=== PATIENT | female | born 1945 | race Caucasian/White ===

== ENCOUNTER → 2016-11-19 | Outpatient (CLI) | payer MEDICARE ==
--- NOTE | 2016-11-20 07:46 | WWPN ---
[facility] - PROGRESS NOTE DATE OF SERVICE: 11/19/2016 CHIEF COMPLAINT: Vaginal dryness, which has gotten worse over the past few months. HPI: This is a 71-year-old, G1, P1 with an LMP of 1975. She is status post vaginal hysterectomy for benign reasons. She has been experiencing discomfort from vaginal dryness including discomfort around the urethral opening. She denies any other urinary symptoms. She previously had used estrogen vaginal cream about 2 years ago, which did seem to help with the vaginal dryness. She has not been on this for more than a year. She currently is not sexually active because of her 's health issues. She does notice the dryness, even though she is not sexually active. PAST MEDICAL HISTORY: The past medical history is unchanged from the 2016 H&P. MEDICATIONS: Medications are also unchanged from the 2016 H&P. REVIEW OF SYSTEMS: Weight has been stable. She denies respiratory, cardiac or GI problems. She denies maltreatment or falling. : She denies any significant urinary leakage. She has had some dryness and irritation as above. PHYSICAL EXAM: Blood pressure 173/82, height 5 feet 4 inches, weight 122 pounds, temperature 97.1, pulse 69. This is a well-developed, well-nourished, white female, who is alert and oriented x3, in no acute distress. ABDOMEN: Soft, nontender without palpable masses. PELVIC EXAM: External genitalia reveals moderate atrophy without lesions. Vagina reveals moderate to severe atrophy without lesions. The vagina is slightly shortened. There is no unusual discharge. Bimanual exam is negative for mass or tenderness. EXTREMITIES: Nontender. IMPRESSION: 1. A 71-year-old menopausal female, status post vaginal hysterectomy for benign reasons with vaginal dryness and periurethral irritation probably secondary to atrophic vaginitis. 2. No evidence of infectious vaginitis. 3. Elevated blood pressure with history of chronic hypertension. PLAN: 1. Trial of Premarin vaginal cream 1 gram intravaginally and to the introitus twice weekly. 2. The patient will follow up with Dr. Pulido regarding her blood pressure and for management of her blood pressure. 3. The patient states she will consider flu shots, but she has not done them in the past. 4. She will return for her annual examination when due. Total time spent with the patient 25 minutes. MMODL / IJN: [id number] /
== END | disposition home or self-care (01) ==
LOC: WWCWWP 10:40
PROVIDERS: ATTEND Obstetrics & Gynecology
DX: Z01.411 Encounter for gynecological examination (general) (routine) with abnormal findings (principal); Z90.710 Acquired absence of both cervix and uterus; L29.3 Anogenital pruritus, unspecified

== ENCOUNTER 2016-11-23 15:06 | Emergency (ER) | payer MEDICARE ==
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
[2016-11-23 16:21] VITALS: BP 160/59; PULSE 78; RESP 20; TEMP 98
== END 2016-11-23 16:36 ==
LOC: EC 15:06
DX: S49.91XA Unspecified injury of right shoulder and upper arm, initial encounter (principal); I10 Essential (primary) hypertension; Z79.899 Other long term (current) drug therapy; Z88.5 Allergy status to narcotic agent; V18.4XXA Pedal cycle driver injured in noncollision transport accident in traffic accident, initial encounter; Y93.89 Activity, other specified; Y92.410 Unspecified street and highway as the place of occurrence of the external cause
CPT/HCPCS: 99283

== ENCOUNTER → 2017-06-04 | Outpatient (CLI) | payer MEDICARE ==
[2017-06-04 11:21] VITALS: BP 182/81; PULSE 66; TEMP 98.2; BMI 20.9
--- NOTE | 2017-06-04 11:48 | P.PN ---
Progress Note - Text Progress Note Date: 06/04/17 Chief complaint: ingrown hair on the right labia times 3 days. HPI: this is a 72-year-old with an LMP of 1975. Patient developed a pimple like lesion on the right labia 3 days ago. She states that looked like a white head. Yesterday it started draining and has gotten smaller. She is not having any significant pain. She has been using the Premarin vaginal cream as directed and this has helped with her vaginal dryness symptoms. ROS: unremarkable PE: blood pressure 182/81 repeat blood pressure 138/88. Height 5'4," weight 122 pounds, temperature 98.2, pulse 66 ,BMI 20.9. This is a well-developed well-nourished white female who is alert and oriented times 3 in no acute distress. External genitalia: there is a pimple like lesion measuring approximately 9 mm x 9 mm on the right labia majora. It is a darker red color than the surrounding skin and is draining slightly from the center. This is slightly raised and firm and nontender. This has a benign appearance. There are no other vulvar lesions. The vulva does reveal moderate atrophy. Mammogram from 09/09/2016 done at [facility] was negative. IMPRESSION: 72-year-old menopausal female with right labial folliculitis for 3 days and is now draining. PLAN: I have reassured the patient that this appears benign and should resolve. She will use warm compresses b.i.d. and apply Neosporin b.i.d. until healed. She was also instructed to call for reevaluation if this is not resolving. She will return in approximately 3 months when she is due for her mammogram. She will be seen for her annual exam and mammogram at that time. Total time spent with the patient 15 minutes.
== END ==
LOC: WWCWWP 10:45
PROVIDERS: ATTEND Obstetrics & Gynecology
DX: Z53.9 Procedure and treatment not carried out, unspecified reason (principal)

== ENCOUNTER → 2017-09-17 | Outpatient (CLI) | payer MEDICARE ==
[2017-09-17 10:19] VITALS: BP 171/68; PULSE 69; TEMP 97.8; BMI 21.2
--- NOTE | 2017-09-17 11:15 | P.HPOB ---
History of Present Illness H&P Date: 09/17/17 Chief Complaint: The patient is here for her routine gynecologic exam and mammogram. This is a 72-year-old with an LMP of 1975. The patient is status post vaginal hysterectomy for benign reasons. She is without gynecologic complaints. She has not been sexually active because of her 's health issues. She was diagnosed with osteoporosis in 2016 with bone density testing. At that time she chose not to use medications for osteoporosis. Review of Systems Her weight has been stable over the last year. She denies respiratory, cardiac and G.I. problems. Certain foods can cause stomach upset such as spicy foods. She denies maltreatment or problems with falling. : she denies any significant problems with urinary leakage. Past Medical History Past Medical History: Hypertension Additional Past Medical History / Comment(s): Osteoporosis. 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 History of Any Multi-Drug Resistant Organisms: None Reported Past Surgical History: Hysterectomy (Vaginal hysterectomy 1975) Additional Past Surgical History / Comment(s): Colonoscopy 2013 Past Psychological History: No Psychological Hx Reported Smoking Status: Never smoker Past Alcohol Use History: Rare (2-4 per year) Past Drug Use History: None Reported Additional History: She's been since 1972 and is currently not sexually active. 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 - Past Family History Mother Family Medical History: Dementia, Hypertension Medications and Allergies Home Medications Medication Instructions Recorded Confirmed Type Famotidine [Pepcid] 20 mg PO DAILY PRN 10/24/14 09/17/17 History Nadolol [Corgard] 20 mg PO BID 10/24/14 09/17/17 History Meclizine [Antivert] 12.5 mg PO BID 06/04/17 09/17/17 History Spironolact/Hydrochlorothiazid 1 each PO DAILY 06/04/17 09/17/17 History [Aldactazide 25-25 MG] Multivitamin [Multivitamins Adult tab PO DAILY 09/17/17 History Gummies] Allergies Allergy/AdvReac Type Severity Reaction Status Date / Time hydromorphone [From Dilaudid] Allergy Nausea & Verified 06/04/17 11:22 Vomiting Exam Vital Signs Temp Pulse BP 09/17/17 10:11 97.8 F 69 171/68 Intake and Output 07/09/17/17 09/17/17 22:59 06:59 14:59 Other: Weight 56.245 kg Height 5'4", BMI 21.3. This is a well-developed well-nourished white female who is alert and oriented times 3 in no acute distress. HEENT: Within normal limits. NECK: Supple without mass or thyromegaly. CHEST AND LUNGS: Clear to auscultation. HEART: Regular rate and rhythm. BREASTS: Are without mass or discharge. AXILLARY EXAM: Negative for adenopathy. BACK: Negative for CVA tenderness. ABDOMEN: Soft, nontender, without palpable masses. PELVIC EXAM: External genitalia appears normal with moderate atrophy. Vagina appears normal with moderate atrophy. There is no evidence of prolapse. Bimanual examination is negative for mass or tenderness. RECTAL EXAM: Rectovaginal exam is negative for mass or tenderness and is negative for occult blood. EXTREMITIES: Nontender. IMPRESSION: 1. 72-year-old menopausal female status post vaginal hysterectomy for benign reasons with normal gynecologic exam. 2. History of osteoporosis. PLAN: 1. Pap smears have been discontinued 2. Self breast awareness was discussed. 3. Screening mammogram will be done today. 4. Osteoporosis management was discussed. I have stressed the importance of adequate calcium, vitamin D and regular exercise. The recommended amounts were also discussed. I have stressed the importance of medications for osteoporosis. We also discussed the possible side effects and concerns with medications such as Fosamax. We have decided to repeat the bone density testing since it has been 2 years since her last one. She states she will consider using medications for osteoporosis after this is done. The order slip for bone density testing was given to the patient. 5. She has not gotten flu shots in the fall, but she states she will consider it this fall. 6. She will return in one year.
--- NOTE | 2017-09-19 07:18 | MM ---
Reason for exam: screening (asymptomatic). Last mammogram was performed 1 year ago. History: Patient is postmenopausal. Physical Findings: A clinical breast exam by your physician is recommended on an annual basis and results should be correlated with mammographic findings. MG Screening Mammo w CAD Bilateral CC and MLO view(s) were taken. Prior study comparison: September 09, 2016, mammogram, performed at [facility]. September 08, 2015, mammogram, performed at [facility]. There are scattered fibroglandular densities. No significant changes when compared with prior studies. ASSESSMENT: Negative, BI-RAD 1 RECOMMENDATION: Routine screening mammogram of both breasts in 1 year.
== END | disposition home or self-care (01) ==
LOC: WWCWWP 10:01
PROVIDERS: ATTEND Obstetrics & Gynecology
DX: Z12.31 Encounter for screening mammogram for malignant neoplasm of breast (principal)
CPT/HCPCS: 77067

== ENCOUNTER → 2017-09-24 | Outpatient (CLI) | payer MEDICARE ==
--- NOTE | 2017-09-24 17:34 | BD ---
EXAMINATION TYPE: Axial Bone Density DATE OF EXAM: 09/24/2017 COMPARISON: NONE CLINICAL HISTORY: 72-year-old female post menopausal, osteoporosis Height: 5'4 Weight: 122 FRAX RISK QUESTIONS: Secondary Osteoporosis: RISK FACTORS HISTORY OF: Postmenopausal woman: y MEDICATIONS: Additional Medications: blood pressure Additional History: EXAM MEASUREMENTS: Bone mineral densitometry was performed using the Local[employer] System. Bone mineral density as measured about the Lumbar spine is: ----- L1-L4(G/cm2): 0.917 T Score Values are as follows: ----- L2: -2.4 ----- L3: -1.7 ----- L4: -2.5 ----- L1-L4: -2.2 Bone mineral density about the R hip (g/cm2): 0.711 Bone mineral density about the L hip (g/cm2): 0.725 T Score values are as follows: -----R Neck: -2.4 -----L Neck: -2.3 -----R Total: -1.7 -----L Total: -1.7 IMPRESSION: Osteopenia (T Score between -2.5 and -1). There is slightly increased risk of fracture and the patient may be considered for treatment. Re-Screen 2-5 years. NOTE: T-SCORE=SD OF THE YOUNG ADULT MEAN.
== END | disposition home or self-care (01) ==
LOC: RADBDWWP 12:33
PROVIDERS: ATTEND Obstetrics & Gynecology
DX: M85.80 Other specified disorders of bone density and structure, unspecified site (principal); Z78.0 Asymptomatic menopausal state
CPT/HCPCS: 77080

== ENCOUNTER → 2018-04-21 | Outpatient (CLI) | payer MEDICARE ==
--- NOTE | 2018-04-22 18:09 | ECHOF ---
Referral Reason:I47.1 Supraventricular tachycardia MEASUREMENTS -------- HEIGHT: 165.1 cm WEIGHT: 55.8 kg BP: 115/75 RVIDd: 2.5 cm (< 3.3) IVSd: 1.0 cm (0.6 - 1.1) LVIDd: 3.8 cm (3.9 - 5.3) LVPWd: 0.9 cm (0.6 - 1.1) IVSs: 1.2 cm LVIDs: 2.7 cm LVPWs: 1.3 cm LA Diam: 2.5 cm (2.7 - 3.8) LAESV Index (A-L): 23.49 ml/m Ao Diam: 2.4 cm (2.0 - 3.7) AV Cusp: 1.6 cm (1.5 - 2.6) MV EXCURSION: 16.464 mm (> 18.000) MV EF SLOPE: 79 mm/s (70 - 150) EPSS: 0.4 cm MV E Nabeel: 1.05 m/s MV DecT: 188 ms MV A Nabeel: 0.88 m/s MV E/A Ratio: 1.20 AR PHT: 695 ms RAP: 5.00 mmHg RVSP: 25.90 mmHg FINDINGS -------- Sinus rhythm. This was a technically good study. The left ventricular size is normal. Left ventricular wall thickness is normal. Overall left vent ricular systolic function is normal with, an EF between 60 - 65 %. The right ventricle is normal in size. Normal LA size by volume 22+/-6 ml/m2. The right atrium is normal in size. The aortic valve is trileaflet and appears structurally normal. There is mild aortic regurgitation. There is trace mitral regurgitation. Mild tricuspid regurgitation present. Right ventricular systolic pressure is normal at < 35 mmHg. Trace/mild (physiologic) pulmonic regurgitation. The aortic root size is normal. Normal inferior vena cava with normal inspiratory collapse consistent with estimated right atrial pre ssure of 5 mmHg. There is no pericardial effusion. CONCLUSIONS -------- 1. Sinus rhythm. 2. This was a technically good study. 3. The left ventricular size is normal. 4. Left ventricular wall thickness is normal. 5. Overall left ventricular systolic function is normal with, an EF between 60 - 65 %. 6. The right ventricle is normal in size. 7. Normal LA size by volume 22+/-6 ml/m2. 8. The right atrium is normal in size. 9. The aortic valve is trileaflet and appears structurally normal. 10. There is mild aortic regurgitation. 11. There is trace mitral regurgitation. 12. Mild tricuspid regurgitation present. 13. Right ventricular systolic pressure is normal at < 35 mmHg. 14. Trace/mild (physiologic) pulmonic regurgitation. 15. The aortic root size is normal. 16. Normal inferior vena cava with normal inspiratory collapse consistent with estimated right atrial pressure of 5 mmHg. 17. There is no pericardial effusion. CONTINUOUS PICKLING LINE PICKLER HELPER: Annabel Felix RDCS
== END ==
LOC: RADECHMAIN 15:37
PROVIDERS: ATTEND Internal Medicine
DX: I08.2 Rheumatic disorders of both aortic and tricuspid valves (principal); I47.1 Supraventricular tachycardia
CPT/HCPCS: 93306

== ENCOUNTER → 2018-09-09 | Outpatient (CLI) | payer MEDICARE ==
--- NOTE | 2018-09-09 08:55 | P.PN ---
Progress Note - Text Progress Note Date: 09/09/18 Chief Complaint: vaginal dryness which has been going on for a long time. HPI: this is a 73-year-old with an LMP of 1975. The patient is status post vaginal hysterectomy for benign reasons. She has been experiencing vaginal dryness which is very bothersome to her. She is no longer sexually active because of her 's medical conditions. She denies vaginal discharge or odor. She recently had a urine test this week which was negative for infection. She denies pruritus and feels the dryness is inside of the vagina. She previously had used an estrogen vaginal cream a few years ago, but only used for brief time. She is otherwise without complaints. ROS: she denies respiratory, cardiac, or G.I. problems. PE: Blood pressure: 171/72, Height: 5'5", Weight: 126 pounds, Temperature: 97.5, Pulse: 61. Pulse oximeter 99%. This is a well developed, well nourished, white female who is alert and orientedx3, in no acute distress. Pelvic exam: external genitalia reveals moderate atrophy without lesions. The vagina reveals moderate to severe atrophy without lesions. The vagina is mildly shortened and narrowed secondary to atrophy. There is no unusual discharge and no unusual odor. Bimanual examination is negative for mass or tenderness. Impression: 1. 73-year-old menopausal female with symptoms of vaginal dryness secondary to moderate to severe atrophy. 2. Status post vaginal hysterectomy for benign reasons. Plan: 1. Trial of Premarin vaginal cream. She will insert 1 g intravaginally twice weekly. She can also use a small amount of the cream to the introitus and around the urethral opening twice weekly. The electronic prescription will be sent to [facility] pharmacy in [place]. 2. She was instructed to call she has any questions or problems. She will return in one year for her well woman examination. Time spent with the patient: 20 minutes
== END | disposition home or self-care (01) ==
DX: Z53.9 Procedure and treatment not carried out, unspecified reason (principal)

== ENCOUNTER → 2018-09-15 | Outpatient (CLI) | payer MEDICARE ==
[2018-09-15 15:32] VITALS: BP 169/78; PULSE 68; RESP 18; BMI 20.7
--- NOTE | 2018-09-15 16:55 | P.HPOB ---
History of Present Illness H&P Date: 09/15/18 Chief Complaint: The patient is here for her routine gynecologic exam. This is a 73 year old with an LMP of 1975. The patient is status post vaginal hysterectomy for benign reasons. She was seen last week for vaginal dryness symptoms. She has not received her prescription which was done through a mail-order pharmacy. She is otherwise without complaints. Review of Systems Her weight has been stable. She denies respiratory, cardiac and G.I. problems. She denies maltreatment or problems with falling. : she denies any significant problems with urinary leakage. Past Medical History Past Medical History: Hypertension Additional Past Medical History / Comment(s): Osteoporosis. 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 History of Any Multi-Drug Resistant Organisms: None Reported Past Surgical History: Hysterectomy Additional Past Surgical History / Comment(s): Vaginal hysterectomy in 1975. Colonoscopy 2013 Past Psychological History: No Psychological Hx Reported Smoking Status: Never smoker Past Alcohol Use History: Occasional (0-4 per month) Past Drug Use History: None Reported Additional History: She has been since 1972 and is currently not se xually active. 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 - Past Family History Mother Family Medical History: Dementia, Hypertension Medications and Allergies Home Medications Medication Instructions Recorded Confirmed Type Famotidine [Pepcid] 20 mg PO DAILY PRN 10/24/14 09/15/18 History Nadolol [Corgard] 20 mg PO BID 10/24/14 09/15/18 History Spironolact/Hydrochlorothiazid 1 each PO DAILY 06/04/17 09/15/18 History [Aldactazide 25-25 MG] Multivitamin [Multivitamins Adult 1 tab PO DAILY 09/17/17 09/15/18 History Gummies] Estrogens, Conjugated Cream 1 gram VAGINAL DIRECTED #1 tube 09/09/18 Rx [Premarin Cream] Allergies Allergy/AdvReac Type Severity Reaction Status Date / Time hydromorphone [From Dilaudid] Allergy Nausea & Verified 09/15/18 15:33 Vomiting Exam Vital Signs Pulse Resp BP Pulse Ox 09/15/18 15:24 68 18 169/78 99 Intake and Output 09/15/18 09/15/18 09/15/18 06:59 14:59 22:59 Other: Weight 56.699 kg Height 5'5", weight 125 pounds, BMI 20.8. This is a well-developed well-nourished white female who is alert and oriented times 3 in no acute distress. HEENT: Within normal limits. NECK: Supple without mass or thyromegaly. CHEST AND LUNGS: Clear to auscultation. HEART: Regular rate and rhythm. BREASTS: Are without mass or discharge. AXILLARY EXAM: Negative for adenopathy. BACK: Negative for CVA tenderness. ABDOMEN: Soft, nontender, without palpable masses. PELVIC EXAM: External genitalia appears normal with moderate atrophy. Vagina appears normal with moderate atrophy. The vagina is mildly shortened and narrow secondary to atrophy. There is no evidence of prolapse. Bimanual examination is negative for mass or tenderness. RECTAL EXAM: Rectovaginal exam is negative for mass or tenderness and is negative for occult blood. EXTREMITIES: Nontender. IMPRESSION: 1. 73-year-old menopausal female who is status post vaginal hysterectomy for benign reasons. 2. Vaginal dryness secondary to genital atrophy. She has not tried to be prescribed estrogen cream since it has not yet arrived. 3. Her last bone density test showed osteopenia and this borders on osteoporosis. 4. Elevated blood pressure with history of chronic hypertension. PLAN: 1. Pap smears have been discontinued. 2. Self breast awareness was discussed with the patient. 3. Screening mammogram will be due in September. The orders that was given to the patient for this. 4. Osteoporosis prevention was discussed. I have stressed the importance of adequate calcium, vitamin D and regular exercise. Recommended amounts of julien cium and vitamin D were also discussed. We will plan and repeating bone density testing in 1 to 2 years. 5. I have recommended that she get flu shots in the fall. 6. I have recommended that she check her own blood pressure on a regular basis and follow-up with Dr. Pulido for blood pressure elevations. 7. She will use Premarin vaginal cream as directed when it arrives. 8. The patient was advised to return in 1-2 years for her well woman examination.
== END ==
LOC: WWCWWP 15:17
PROVIDERS: ATTEND Obstetrics & Gynecology
DX: Z53.9 Procedure and treatment not carried out, unspecified reason (principal)

== ENCOUNTER → 2018-10-15 | Outpatient (CLI) | payer MEDICARE ==
--- NOTE | 2018-10-20 09:24 | MM ---
Reason for exam: screening (asymptomatic). Last mammogram was performed 1 year and 1 month ago. History: Patient is postmenopausal. Physical Findings: A clinical breast exam by your physician is recommended on an annual basis and results should be correlated with mammographic findings. MG 3D Screening Mammo W/Cad Bilateral CC and MLO view(s) were taken. Prior study comparison: September 17, 2017, bilateral MG screening mammo w CAD. September 09, 2016, mammogram, performed at [facility]. There are scattered fibroglandular densities. Nodular asymmetric density lateral and posterior right breast is more defined. ASSESSMENT: Incomplete: need additional imaging evaluation, BI-RAD 0 RECOMMENDATION: Special view mammogram of the right breast. (3D) If lesion persists on supplemental views, image directed ultrasound is recommended. [facility] will attempt to contact patient to return for supplemental views and ultrasound if indicated.
== END | disposition home or self-care (01) ==
LOC: RADMAMWWP 13:28
PROVIDERS: ATTEND Obstetrics & Gynecology
DX: Z12.31 Encounter for screening mammogram for malignant neoplasm of breast (principal)
CPT/HCPCS: 77063; 77067

== ENCOUNTER → 2018-10-26 | Outpatient (CLI) | payer MEDICARE ==
--- NOTE | 2018-10-26 09:22 | MM ---
Reason for exam: additional evaluation requested from abnormal screening. Last mammogram was performed less than 1 month ago. History: Patient is postmenopausal. Physical Findings: Nurse did not find any significant physical abnormalities on exam. MG 3D Work Up W/Cad RT Spot compression CC, spot compression MLO, and LM view(s) were taken of the right breast. Prior study comparison: October 15, 2018, bilateral MG 3d screening mammo w/cad. September 17, 2017, bilateral MG screening mammo w CAD. There are scattered fibroglandular densities. No distinct lesion persists on additional views. These results were verbally communicated with the patient and result sheet given to the patient on 10/26/18. ASSESSMENT: Benign, BI-RAD 2 RECOMMENDATION: Return to routine screening mammogram schedule for both breasts.
== END | disposition home or self-care (01) ==
LOC: RADMAMWWP 08:15
PROVIDERS: ATTEND Obstetrics & Gynecology
DX: R92.8 Other abnormal and inconclusive findings on diagnostic imaging of breast (principal)
CPT/HCPCS: 77065; G0279; 77061

== ENCOUNTER 2019-03-24 10:17 | Day surgery (SDC) | payer MEDICARE ==
[2019-03-22 11:45] VITALS: BMI 20.5
[~2019-03-24 10:17] MED LIST: LACTATED RINGERS 1,000 ML IV SCH; LIDOCAINE 1% 20 ML VIAL (10MG/ML) FOR IV START INTRADERMA PRN
[2019-03-24 10:53] VITALS: TEMP 98.3
[2019-03-24] MEDS ORDERED: PROPOFOL 10 MG/ML 20 ML VIAL IV ONE (11:13)
[2019-03-24] MEDS ORDERED: LIDOCAINE 1% INJ 10MG/ML (20 ML MDV) ONE (11:13)
--- NOTE | 2019-03-24 11:45 | P.PCN ---
Date of Procedure: 03/24/19 Procedure(s) Performed: BRIEF HISTORY: Patient is a 73-year-old pleasant female scheduled for an elective colonoscopy as a part of evaluation of positive cologuard PROCEDURE PERFORMED: Colonoscopy. PREOPERATIVE DIAGNOSIS: Positive cologuard . IV sedation per Anesthesia. PROCEDURE: After informed consent was obtained, the patient, was brought into the endoscopy unit. IV sedation was administered by Anesthesia under continuous monitoring. Digital rectal examination was normal. Initially the Olympus CF-160 flexible video colonoscope was then inserted in the rectum, gradually advanced into the cecum without any difficulty. Careful examination was performed as the scope was gradually being withdrawn. Ileocecal valve and the appendiceal orifice were visualized and appeared normal. Prep was excellent. Mucosa of the cecum, ascending colon, transverse colon, descending colon, sigmoid colon, and rectum appeared normal. Scattered sigmoid diverticulosis seen. Retroflexion was performed in the rectum and small internal hemorrhoids were seen. The patient tolerated the procedure well. IMPRESSION: Normal-appearing colon from rectum to cecum with no evidence of colitis or colorectal neoplasia Scattered sigmoid diverticulosis Small internal hemorrhoids. . RECOMMENDATIONS: Findings of this examination were discussed with the patient as well as her family. She was advised to have a high-fiber diet and fiber supplements a regular basis and avoid straining and constipation
[2019-03-24 12:04] VITALS: BP 140/56; PULSE 58; RESP 16
== END 2019-03-24 12:35 | disposition home or self-care (01) ==
LOC: ORWHC2ENDO 10:17
PROVIDERS: ATTEND Internal Medicine Gastroenterology
DX: K57.30 Diverticulosis of large intestine without perforation or abscess without bleeding (principal); K64.8 Other hemorrhoids; I10 Essential (primary) hypertension; K21.9 Gastro-esophageal reflux disease without esophagitis; Z88.5 Allergy status to narcotic agent; Z79.899 Other long term (current) drug therapy
CPT/HCPCS: 45378; J2001; J2704

== ENCOUNTER → 2019-10-19 | Outpatient (CLI) | payer MEDICARE ==
[2019-10-19 10:52] VITALS: BP 132/57; PULSE 66; RESP 18; TEMP 97.7
--- NOTE | 2019-10-19 11:34 | P.HPOB ---
History of Present Illness H&P Date: 10/19/19 Chief Complaint: The patient is here for her routine gynecologic exam and ma mmogram. This is a 74-year-old with an LMP of 1975. The patient is status post vaginal hysterectomy for benign reasons. She states she has done well with Premarin vaginal cream which she has used for vaginal dryness symptoms. She would like to continue using this. She is otherwise without complaints. Review of Systems Weight has been stable. She denies respiratory, cardiac and G.I. problems. She denies maltreatment or problems with falling. : she denies any significant problems with urinary leakage. Past Medical History Past Medical History: Hypertension, Osteoarthritis (OA) Additional Past Medical History / Comment(s): Osteoporosis. hx hemmoroids. 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 History of Any Multi-Drug Resistant Organisms: None Reported Past Surgical History: Hysterectomy Additional Past Surgical History / Comment(s): Colonoscopy 2019. Vaginal hysterectomy in 1975. Past Anesthesia/Blood Transfusion Reactions: No Reported Reaction Past Psychological History: No Psychological Hx Reported Smoking Status: Former smoker Past Alcohol Use History: Rare (6 per year) Additional Past Alcohol Use History / Comment(s): Quit smoking at age 28. Past Drug Use History: None Reported Additional History: She has been since 1972 and is not sexually active. 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 - Past Family History Mother Family Medical History: Dementia, Hypertension Medications and Allergies Home Medications Medication Instructions Recorded Confirmed Type Famotidine [Pepcid] 20 mg PO DAILY PRN 10/24/14 10/19/19 History Nadolol [Corgard] 20 mg PO HS 10/24/14 10/19/19 History Spironolact/Hydrochlorothiazid 0.5 tab PO Q48H 06/04/17 10/19/19 History [Aldactazide 25-25 MG] Multivitamin [Multivitamins Adult 1 tab PO DAILY 09/17/17 10/19/19 History Gummies] Calcium Carbonate [Calcium] 600 mg PO DAILY 03/22/19 10/19/19 History Cyanocobalamin (Vitamin B-12) 1,000 mcg PO DAILY 03/22/19 10/19/19 History [Vitamin B-12] Estrogens, Conjugated Cream 1 gram VAGINAL Q14D 03/22/19 10/19/19 History [Premarin Cream] L.acidoph,Paracasei, B.lactis 1 each PO DAILY 03/22/19 10/19/19 History [Probiotic] Allergies Allergy/AdvReac Type Severity Reaction Status Date / Time hydromorphone [From Dilaudid] AdvReac Nausea & Verified 10/19/19 10:52 Vomiting Exam Vital Signs Temp Pulse Resp BP Pulse Ox 10/19/19 10:36 97.7 F 66 18 132/57 100 Intake and Output 10/18/19 10/19/19 10/19/19 22:59 06:59 14:59 Other: Weight 57.153 kg Height 5 feet 5 inches, weight 126 pounds, BMI 21.0. This is a well-developed well-nourished white female who is alert and oriented times 3 in no acute distress. HEENT: Within normal limits. NECK: Supple without mass or thyromegaly. CHEST AND LUNGS: Clear to auscultation. HEART: Regular rate and rhythm. BREASTS: Are without mass or discharge. AXILLARY EXAM: Negative for adenopathy. BACK: Negative for CVA tenderness. ABDOMEN: Soft, nontender, without palpable masses. PELVIC EXAM: External genitalia appears normal with mild to moderate atrophy. Vagina appears normal with mild to moderate atrophy. There is no evidence of prolapse. Bimanual examination is negative for mass or tenderness. RECTAL EXAM: Rectovaginal exam is negative for mass or tenderness and is negative for occult blood. EXTREMITIES: Nontender. IMPRESSION: 1. 74-year-old menopausal female who is status post vaginal hysterectomy for benign reasons with normal gynecologic exam. 2. Her last bone density test showed osteopenia in this borders on osteoporosis. 3. History of vaginal dryness secondary to genital atrophy which has improved with Premarin vaginal cream. PLAN: 1. Pap smears have been discontinued. 2. Self breast awareness was discussed with the patient. 3. Screening mammogram will be done today. 4. Osteoporosis prevention was discussed. I have stressed the importance of adequate calcium, vitamin D and regular exercise. Recommended amounts of calcium and vitamin D were also discussed. Bone density testing will be done today. 5. She plans to get a flu shot this fall. 6. Continue Premarin vaginal cream 1 g into the vagina 2 times weekly. The electronic prescription will be sent to [facility] in [place]. 7. The patient was advised to return in 1-2 years for her well woman examination.
--- NOTE | 2019-10-19 13:10 | BD ---
EXAMINATION TYPE: Axial Bone Density DATE OF EXAM: 10/19/2019 COMPARISON: 09/24/2017 CLINICAL HISTORY: Postmenopausal female. Height: 63.5 IN Weight: 125 LBS RISK FACTORS HISTORY OF: Active: YES Postmenopausal woman: AGE 43 APPROX MEDICATIONS: Additional Medications: CALCIUM, BLOOD PRESSURE MEDS, EXAM MEASUREMENTS: Bone mineral densitometry was performed using the [employer] System. Bone mineral density as measured about the Lumbar spine is: ----- L1-L4(G/cm2): 0.880 T Score Values are as follows: ----- L2: -2.4 ----- L3: -2.1 ----- L4: -3.3 ----- L1-L4: -2.5 Bone mineral density has: Decreased -5.8% since study of: 10/04/2017 Bone mineral density about the R hip (g/cm2): 0.712 Bone mineral density about the L hip (g/cm2): 0.692 T Score values are as follows: -----R Neck: -2.3 -----L Neck: -2.5 -----R Total: -1.7 -----L Total: -1.8 Bone mineral density has: Decreased -0.3% since study of: 09/24/2017 IMPRESSION: Osteopenia (T Score between -2.5 and -1) remains present. Bone density is decreased or diminished fro m prior. There remains slightly increased risk of fracture and the patient may be considered for treatment. Re-Screen 2-5 years. NOTE: T-SCORE=SD OF THE YOUNG ADULT MEAN.
--- NOTE | 2019-10-20 10:18 | MM ---
Reason for exam: screening (asymptomatic). Last mammogram was performed 1 year ago. History: Patient is postmenopausal. Physical Findings: A clinical breast exam by your physician is recommended on an annual basis and results should be correlated with mammographic findings. MG 3D Screening Mammo W/Cad Bilateral CC and MLO view(s) were taken. XCCL view(s) were taken of the right breast. Prior study comparison: October 26, 2018, right breast MG 3d work up w/cad RT. October 15, 2018, bilateral MG 3d screening mammo w/cad. There are scattered fibroglandular densities. There is no discrete abnormality. No significant changes when compared with prior studies. ASSESSMENT: Negative, BI-RAD 1 RECOMMENDATION: Routine screening mammogram of both breasts in 1 year.
--- NOTE | 2019-10-26 14:58 | P.PN ---
Progress Note - Text Progress Note Date: 10/26/19 OUTPATIENT FOLLOW-UP NOTE TEST(S)/RESULTS: Test results from 10/19/2019 include benign mammogram and bone density test showing osteopenia bordering on osteoporosis METHOD OF NOTIFICATION: Patient was notified by phone. PATIENT COMMENTS: The patient is declining any medication for osteoporosis/o steopenia DIAGNOSIS: Osteopenia bordering on osteoporosis and benign mammogram. DISCUSSION: We have had a long discussion on how her bones are a greater risk for fracture. We have discussed the option of medications such as Fosamax. We have discussed pros and cons with this medication and she is choosing to continue without medication for this. I have recommended that she get adequate calcium, vitamin D and regular exercise. She was also instructed to call me if she changes her mind about using medication for osteoporosis. PLAN: The patient was advised to return in 1-2 years for her well woman examination.
== END | disposition home or self-care (01) ==
LOC: WWCWWP 10:34
PROVIDERS: ATTEND Obstetrics & Gynecology
DX: Z12.31 Encounter for screening mammogram for malignant neoplasm of breast (principal); M85.80 Other specified disorders of bone density and structure, unspecified site; Z78.0 Asymptomatic menopausal state
CPT/HCPCS: 77063; 77067; 77080

== ENCOUNTER → 2020-04-11 | Outpatient (CLI) | payer MEDICARE ==
[2020-04-11 10:54] VITALS: BP 115/73; PULSE 76; RESP 18; TEMP 97.7
--- NOTE | 2020-04-11 11:43 | P.PN ---
Progress Note - Text Progress Note Date: 04/11/20 Chief Complaint: Soreness around the urethral opening during the past month. HPI: This is a 74-year-old with an LMP of 1975 who is status post vaginal hysterectomy for benign reasons. The patient developed some UTI symptoms including dysuria and urinary frequency in mid January. She was treated with nitrofurantoin on 02/04/2020 by her PCP. She again and developed some similar symptoms later in February and was again treated with nitrofurantoin by her PCP on 03/15/2020. She has completed that prescription and her urinary symptoms seem better, but she was experiencing some soreness around the urethral opening. Over the past 5 days this seems to be less bothersome. ROS: She denies respiratory or cardiac problems. GI: Yesterday she noticed some mucousy secretion from the anus. Her stool may also have been slightly loose. She denies problems with constipation or watery diarrhea. Today she had a fairly normal bowel movement. : As above. PE: Blood pressure: 115/73, Height: 5 feet 5 inches, Weight: 125 pounds, Temperature: Any 7.7, Pulse: 76. Pulse oximeter 99%. This is a well developed, well nourished, white female who is alert and orientedx3, in no acute distress. Abdomen: Soft, nontender, without palpable masses. Pelvic exam: External genitalia reveals mild to moderate atrophy without lesions. At the urethral opening there is a slight small abrasion at the 8 o'clock position of the opening. This is not ulcerated and is nontender. The vagina appears normal with mild to moderate atrophy. There is no significant prolapse. Bimanual examination is negative for mass or tenderness. Impression: 1. 74-year-old menopausal female status post vaginal hysterectomy for benign reasons with some soreness around the urethral opening with findings consistent of a small healing abrasion at the urethral opening. 2. Small amount of mucousy discharge from the anus yesterday. Plan: 1. I have reassured the patient that her soreness will probably continue to improve with time. She is to avoid rubbing or scratching the area. 2. She states she has been using the Premarin vaginal cream once a week. I have recommended that she use this twice a week with a small amount to the area around the urethral opening. She will call if symptoms are not improving or if problems. 3. If she continues to have an abnormal secretion from the anus, she will follow up with her PCP and possibly be referred to her GI doctor, Dr. Bonilla. 4. She will return in approximate 7 months for her well woman examination or return as needed. Time spent with the patient: 20 minutes
== END | disposition home or self-care (01) ==
LOC: WWCWWP 10:34
PROVIDERS: ATTEND Obstetrics & Gynecology
DX: L98.9 Disorder of the skin and subcutaneous tissue, unspecified (principal); K62.9 Disease of anus and rectum, unspecified; Z90.710 Acquired absence of both cervix and uterus

== ENCOUNTER → 2020-11-21 | Outpatient (CLI) | payer MEDICARE ==
[2020-11-21 09:49] VITALS: BP 149/82; PULSE 57; RESP 18; TEMP 98
--- NOTE | 2020-11-21 10:34 | P.HPOB ---
History of Present Illness H&P Date: 11/21/20 Chief Complaint: The patient is here for her routine gynecologic exam and ma mmogram. This is a 75-year-old with an LMP of 1975. The patient is without gynecologic complaints. She is status post vaginal hysterectomy for benign reasons. She continues to use Premarin vaginal cream for vaginal dryness and she states this has been helpful. She would like to continue using this. Review of Systems Weight has been stable. She denies respiratory, cardiac and G.I. problems. She denies maltreatment or problems with falling. : she denies any significant problems with urinary leakage. Past Medical History Past Medical History: Hypertension, Osteoarthritis (OA) Additional Past Medical History / Comment(s): Osteoporosis(has declined medication). hx hemorhoids. 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 History of Any Multi-Drug Resistant Organisms: None Reported Past Surgical History: Hysterectomy Additional Past Surgical History / Comment(s): Colonoscopy 2017(next after 10yr). Vaginal hysterectomy in 1975. Past Anesthesia/Blood Transfusion Reactions: No Reported Reaction Past Psychological History: No Psychological Hx Reported Smoking Status: Former smoker Past Alcohol Use History: Rare (6 per year) Additional Past Alcohol Use History / Comment(s): Quit smoking at age 28. 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 - Past Family History Mother Family Medical History: Dementia, Hypertension Medications and Allergies Home Medications Medication Instructions Recorded Confirmed Type Famotidine [Pepcid] 20 mg PO DAILY PRN 10/24/14 11/21/20 History Nadolol [Corgard] 20 mg PO HS 10/24/14 11/21/20 History Spironolact/Hydrochlorothiazid 0.5 tab PO Q48H 06/04/17 11/21/20 History [Aldactazide 25-25 MG] Calcium Carbonate [Calcium] 600 mg PO DAILY 03/22/19 11/21/20 History L.acidoph,Paracasei, B.lactis 1 each PO DAILY 03/22/19 11/21/20 History [Probiotic] Estrogens, Conjugated Cream 1 gram VAGINAL DIRECTED #1 tube 10/19/19 11/21/20 Rx [Premarin Cream] ALPRAZolam [Xanax] 0.5 mg PO Q8HR PRN 04/11/20 11/21/20 History Omeprazole [PriLOSEC] 20 mg PO AC-BRKFST 04/11/20 11/21/20 History Allergies Allergy/AdvReac Type Severity Reaction Status Date / Time hydromorphone [From Dilaudid] AdvReac Nausea & Verified 11/21/20 09:45 Vomiting Exam Vital Signs Temp Pulse Resp BP Pulse Ox 11/21/20 09:45 98.0 F 57 L 18 149/82 99 Intake and Output 11/20/20 11/21/20 11/21/20 22:59 06:59 14:59 Other: Weight 57.606 kg Height 5 feet 4-1/2 inches, weight 127 pounds, BMI 21.5. This is a well-developed well-nourished white female who is alert and oriented times 3 in no acute distress. HEENT: Within normal limits. NECK: Supple without mass or thyromegaly. CHEST AND LUNGS: Clear to auscultation. HEART: Regular rate and rhythm. BREASTS: Are without mass or discharge. AXILLARY EXAM: Negative for adenopathy. BACK: Negative for CVA tenderness. ABDOMEN: Soft, nontender, without palpable masses. PELVIC EXAM: External genitalia appears normal with mild to moderate atrophy. Vagina appears normal with mild to moderate atrophy. There is no evidence of prolapse. Bimanual examination is negative for mass or tenderness. RECTAL EXAM: Rectovaginal exam is negative for mass or tenderness and is negative for occult blood. EXTREMITIES: Nontender. IMPRESSION: 1. 75-year-old menopausal female status post vaginal hysterectomy for benign reasons with normal gynecologic exam. 2. History of osteoporosis and has declined treatment in the past. PLAN: 1. Pap smears have been discontinued. 2. Self breast awareness was discussed with the patient. We have also discussed symptoms associated with inflammatory breast cancer. 3. Screening mammogram will be done today. 4. Osteoporosis management was discussed. I have stressed the importance of adequate calcium, vitamin D and regular exercise. Recommended amounts of calcium and vitamin D were also discussed. We have discussed her increased risk for bone fracture. We have also discussed medication options. I have discussed Fosamax including possible risks such as osteonecrosis of the jaw and esophageal ulceration. She and her would like more information about medical treatment and about osteoporosis. Information on Fosamax and osteoporosis were given to the patient. She will call if she changes her mind regarding medication treatment for osteoporosis. 5. She would like to continue Premarin cream. The prescription will be sent to my her pharmacy in [place]. 6. She has completed her Covid vaccination series. She plans on getting her flu shot in the very near future. 7. She was advised to return in one year for her annual well woman exam.
--- NOTE | 2020-11-21 13:23 | MM ---
Reason for exam: screening (asymptomatic). Last mammogram was performed 1 year and 1 month ago. History: Patient is postmenopausal. Physical Findings: A clinical breast exam by your physician is recommended on an annual basis and results should be correlated with mammographic findings. MG 3D Screening Mammo W/Cad Bilateral CC and MLO view(s) were taken. Prior study comparison: October 19, 2019, bilateral MG 3d screening mammo w/cad. October 15, 2018, bilateral MG 3d screening mammo w/cad. There are scattered fibroglandular densities. There is no discrete abnormality. ASSESSMENT: Negative, BI-RAD 1 RECOMMENDATION: Routine screening mammogram of both breasts in 1 year.
== END ==
LOC: WWCWWP 09:23
PROVIDERS: ATTEND Obstetrics & Gynecology
DX: Z12.31 Encounter for screening mammogram for malignant neoplasm of breast (principal); Z01.419 Encounter for gynecological examination (general) (routine) without abnormal findings; I10 Essential (primary) hypertension; M19.90 Unspecified osteoarthritis, unspecified site; Z87.891 Personal history of nicotine dependence; Z90.710 Acquired absence of both cervix and uterus; Z87.39 Personal history of other diseases of the musculoskeletal system and connective tissue; Z88.5 Allergy status to narcotic agent
CPT/HCPCS: 77063; 77067

== ENCOUNTER → 2021-09-18 | Outpatient (CLI) | payer MEDICARE | END | disposition home or self-care (01) | LOC: LABWHC1 11:30 | PROVIDERS: ATTEND Internal Medicine | DX: U07.1 COVID-19 (principal) | CPT/HCPCS: U0003; C9803; U0005 ==

== ENCOUNTER 2021-09-29 10:47 | Emergency (ER) | payer MEDICARE ==
[2021-09-29 11:09] VITALS: TEMP 97.5
--- NOTE | 2021-09-29 11:14 | ED ---
Abdominal Pain HPI - General Chief Complaint: Abdominal Pain Stated Complaint: back pain, abd pain Time Seen by Provider: 09/29/21 11:14 Source: patient, RN notes reviewed Mode of arrival: ambulatory Limitations: no limitations - Related Data Home Medications Medication Instructions Recorded Confirmed Famotidine [Pepcid] 20 mg PO DAILY PRN 10/24/14 11/21/20 nadoloL [Corgard] 20 mg PO HS 10/24/14 11/21/20 Spironolact/Hydrochlorothiazid 0.5 tab PO Q48H 06/04/17 11/21/20 [Aldactazide 25-25 MG] Calcium Carbonate [Calcium] 600 mg PO DAILY 03/22/19 11/21/20 L.acidoph,Paracasei, B.lactis 1 each PO DAILY 03/22/19 11/21/20 [Probiotic] ALPRAZolam [Xanax] 0.5 mg PO Q8HR PRN 04/11/20 11/21/20 Omeprazole [PriLOSEC] 20 mg PO AC-BRKFST 04/11/20 11/21/20 Previous Rx's Medication Instructions Recorded Estrogens, Conjugated Cream 1 gram VAGINAL DIRECTED #30 gram 11/21/20 [Premarin Vaginal Cream] Allergies Allergy/AdvReac Type Severity Reaction Status Date / Time hydromorphone [From Dilaudid] AdvReac Nausea & Verified 09/29/21 11:09 Vomiting Review of Systems ROS Statement: Those systems with pertinent positive or pertinent negative responses have been documented in the HPI. ROS Other: All systems not noted in ROS Statement are negative. Past Medical History Past Medical History: Hypertension, Osteoarthritis (OA) Additional Past Medical History / Comment(s): Osteoporosis(has declined medication). hx hemorhoids. 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 History of Any Multi-Drug Resistant Organisms: None Reported Past Surgical History: Hysterectomy Additional Past Surgical History / Comment(s): Colonoscopy 2018(next after 10yr). Vaginal hysterectomy in 1975. Past Anesthesia/Blood Transfusion Reactions: No Reported Reaction Past Psychological History: No Psychological Hx Reported Smoking Status: Former smoker Past Alcohol Use History: Rare Past Drug Use History: None Reported - Past Family History Mother Family Medical History: Dementia, Hypertension General Exam Limitations: no limitations Course Vital Signs 09/29/21 11:06 Temperature 97.5 F L Pulse Rate 64 Respiratory 20 Rate Blood Pressure 175/66 O2 Sat by Pulse 100 Oximetry Disposition Referrals: Marlys Barton MD [Primary Care Provider] - 1-2 days
[2021-09-29] MEDS ORDERED: KETOROLAC 15 MG/ML 1 ML VIAL IVP STA (11:26)
--- NOTE | 2021-09-29 11:36 | ED ---
General Adult HPI - General Chief complaint: Abdominal Pain Stated complaint: back pain, abd pain Time Seen by Provider: 09/29/21 11:14 Source: patient, family, RN notes reviewed Mode of arrival: ambulatory Limitations: no limitations - History of Present Illness Initial comments: Patient is a 76-year-old female presents to the emergency room with her spouse with complaints of bilateral mid back pain which she states started as pain in her bilateral upper and epigastric abdominal region and has radiated to the back. She denies any nausea or vomiting; her spouse admits to increased belching earlier this morning. Patient is a poor historian repeating questions and statements often. Her spouse reports some issues with memory impairment but she is not currently on treatment for dementia or Parkinson's. She has a pill- rolling tremor in her left hand and facial tremors along with slowed speech. Her spouse reports that she has a history of pancreatitis many years ago but is unsure how symptoms presented at that time. She has not had any diarrhea since the events occurred. She states that the pain began today however her spouse reports intermittent symptoms over the last 4 days. Both the patient and his spouse report having COVID approximately one month ago. He recently tested at home and were negative. She denies any other significant symptoms with the exception of bilateral upper back pain without any known aggravating or alleviating factors. She denies any dysuria, hematuria, fevers, chills, back range of motion impairment, nausea, vomiting, diarrhea, abdominal cramping, changes in stools, or unintentional weight changes. Patient has a past medical history significant for hypertension, GERD and osteoporosis. - Related Data Home Medications Medication Instructions Recorded Confirmed Famotidine [Pepcid] 20 mg PO DAILY PRN 10/24/14 11/21/20 nadoloL [Corgard] 20 mg PO HS 10/24/14 11/21/20 Spironolact/Hydrochlorothiazid 0.5 tab PO Q48H 06/04/17 11/21/20 [Aldactazide 25-25 MG] Calcium Carbonate [Calcium] 600 mg PO DAILY 03/22/19 11/21/20 L.acidoph,Paracasei, B.lactis 1 each PO DAILY 03/22/19 11/21/20 [Probiotic] ALPRAZolam [Xanax] 0.5 mg PO Q8HR PRN 04/11/20 11/21/20 Omeprazole [PriLOSEC] 20 mg PO AC-BRKFST 04/11/20 11/21/20 Previous Rx's Medication Instructions Recorded Estrogens, Conjugated Cream 1 gram VAGINAL DIRECTED #30 gram 11/21/20 [Premarin Vaginal Cream] Erythromycin Base [Erythromycin] 250 mg PO Q6H 10 Days #40 tablet 09/29/21 Ondansetron Odt [Zofran Odt] 4 mg PO Q8HR PRN 7 Days #21 tab 09/29/21 Allergies Allergy/AdvReac Type Severity Reaction Status Date / Time hydromorphone [From Dilaudid] AdvReac Nausea & Verified 09/29/21 11:09 Vomiting Review of Systems ROS Statement: Those systems with pertinent positive or pertinent negative responses have been documented in the HPI. ROS Other: All systems not noted in ROS Statement are negative. Past Medical History Past Medical History: Hypertension, Osteoarthritis (OA) Additional Past Medical History / Comment(s): Osteoporosis(has declined medication). hx hemorhoids. 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 History of Any Multi-Drug Resistant Organisms: None Reported Past Surgical History: Hysterectomy Additional Past Surgical History / Comment(s): Colonoscopy 2018(next after 10yr). Vaginal hysterectomy in 1975. Past Anesthesia/Blood Transfusion Reactions: No Reported Reaction Past Psychological History: No Psychological Hx Reported Smoking Status: Former smoker Past Alcohol Use History: Rare Past Drug Use History: None Reported - Past Family History Mother Family Medical History: Dementia, Hypertension General Exam Limitations: no limitations General appearance: alert, in no apparent distress Head exam: Present: atraumatic, normocephalic, normal inspection Eye exam: Present: normal appearance, PERRL, EOMI. Absent: scleral icterus, conjunctival injection, periorbital swelling ENT exam: Present: normal exam, mucous membranes moist Neck exam: Present: normal inspection. Absent: tenderness, meningismus, lymphadenopathy Respiratory exam: Present: normal lung sounds bilaterally. Absent: respiratory distress, wheezes, rales, rhonchi, stridor Cardiovascular Exam: Present: regular rate, normal rhythm, normal heart sounds. Absent: systolic murmur, diastolic murmur, rubs, gallop, clicks GI/Abdominal exam: Present: soft, normal bowel sounds. Absent: distended, tenderness, guarding, rebound, rigid Extremities exam: Present: normal inspection, full ROM, normal capillary refill. Absent: tenderness, pedal edema, joint swelling, calf tenderness Back exam: Present: normal inspection, full ROM. Absent: CVA tenderness (R), CVA tenderness (L), muscle spasm, paraspinal tenderness, vertebral tenderness Neurological exam: Present: alert, oriented X3, CN II-XII intact Expanded Neurological exam: Present: tremor Patient oriented to: Present: person, place, time (Poor historian) Speech: Absent: fluid speech (slow and stuttered at times) Psychiatric exam: Present: normal affect, normal mood Skin exam: Present: warm, dry, intact, normal color. Absent: rash Course Vital Signs 09/29/21 11:06 Temperature 97.5 F L Pulse Rate 64 Respiratory 20 Rate Blood Pressure 175/66 O2 Sat by Pulse 100 Oximetry Medical Decision Making - Medical Decision Making Patient complaining of bilateral flank pain but initially reports upper abdominal pain. Will check KUB along with CBC, amylase, lipase and CMP. Will give Toradol for pain and monitor symptoms. Patient with dry heaves without any emesis. Will give Zofran. CBC normal. CMP amylase and lipase showed elevated glucose at 112 otherwise normal. KUB consistent with gastroenteritis versus ileus. No evidence of obstruction. Back pain improved with Toradol. Nausea improved with Zofran. Laboratory findings and x-ray results discussed with patient and spouse. Will discharge home on a short course of erythromycin along with Zofran to utilize as needed. Return parameters to the emergency room discussed with patient and spouse. Advise follow-up with their primary care provider next week. Case discussed with Dr. Jarrett - Lab Data Result diagrams: 09/29/21 11:47 09/29/21 11:47 Lab Results 09/29/21 09/29/21 Range/Units 11:47 11:47 WBC 8.1 (3.8-10.6) k/uL RBC 4.75 (3.80-5.40) m/uL Hgb 13.1 (11.4-16.0) gm/dL Hct 41.0 (34.0-46.0) % MCV 86.2 (80.0-100.0) fL MCH 27.6 (25.0-35.0) pg MCHC 32.0 (31.0-37.0) g/dL RDW 12.9 (11.5-15.5) % Plt Count 334 (150-450) k/uL MPV 7.7 Neutrophils % 72 % Lymphocytes % 19 % Monocytes % 5 % Eosinophils % 2 % Basophils % 1 % Neutrophils # 5.8 (1.3-7.7) k/uL Lymphocytes # 1.5 (1.0-4.8) k/uL Monocytes # 0.4 (0-1.0) k/uL Eosinophils # 0.2 (0-0.7) k/uL Basophils # 0.1 (0-0.2) k/uL Sodium 141 (137-145) mmol/L Potassium 4.0 (3.5-5.1) mmol/L Chloride 104 (98-107) mmol/L Carbon Dioxide 28 (22-30) mmol/L Anion Gap 9 mmol/L BUN 17 (7-17) mg/dL Creatinine 0.74 (0.52-1.04) mg/dL Est GFR (CKD-EPI)AfAm >90 (>60 ml/min/1.73 sqM) Est GFR (CKD-EPI)NonAf 78 (>60 ml/min/1.73 sqM) Glucose 114 H (74-99) mg/dL Calcium 9.0 (8.4-10.2) mg/dL Total Bilirubin 0.6 (0.2-1.3) mg/dL AST 27 (14-36) U/L ALT 13 (4-34) U/L Alkaline Phosphatase 61 (38-126) U/L Total Protein 7.0 (6.3-8.2) g/dL Albumin 4.3 (3.5-5.0) g/dL Amylase 74 (30-110) U/L Lipase 132 (23-300) U/L - Radiology Data Radiology results: report reviewed, image reviewed X-ray KUB impression small air-fluid levels in the left side of abdomen suggested of regional ileus or enteritis. Nonobstructive bowel gas pattern. Disposition Clinical Impression: Gastroenteritis Disposition: HOME SELF-CARE Condition: Stable Instructions (If sedation given, give patient instructions): Gastritis (ED) Additional Instructions: Please complete course of erythromycin. Follow a bland diet with plenty of fluid intake avoiding caffeinated products. Utilize Zofran as needed for nausea. Please follow-up with your primary care provider. Please return to the Emergency Department if symptoms worsen or any other concerns. Prescriptions: Erythromycin Base [Erythromycin] 250 mg PO Q6H 10 Days #40 tablet Ondansetron Odt [Zofran Odt] 4 mg PO Q8HR PRN 7 Days #21 tab PRN Reason: Nausea Is patient prescribed a controlled substance at d/c from ED?: No Referrals: Marlys Barton MD [Primary Care Provider] - 1-2 days Time of Disposition: 13:11
[2021-09-29] MEDS ORDERED: ONDANSETRON 4 MG/2 ML VIAL IVP STA (11:53)
[2021-09-29 11:55] LABS: Basophils # (A) 0.1 k/uL (0-0.2); Basophils % (A) 1 %; Eosinophils # (A) 0.2 k/uL (0-0.7); Eosinophils % (A) 2 %; HGB 13.1 gm/dL (11.4-16.0); Lymphocytes # (A) 1.5 k/uL (1.0-4.8); Lymphocytes % (A) 19 %; MCH 27.6 pg (25.0-35.0); MCV 86.2 fL (80.0-100.0); Mean Platelet Volume 7.7; Monocytes # (A) 0.4 k/uL (0-1.0); Monocytes % (A) 5 %; Neutrophils # (A) 5.8 k/uL (1.3-7.7); Neutrophils % (A) 72 %; Platelet Count 334 k/uL (150-450); RBC 4.75 m/uL (3.80-5.40); RDW 12.9 % (11.5-15.5); WBC 8.1 k/uL (3.8-10.6)
[2021-09-29 12:07] LABS: ALT 13 U/L (4-34); African American GFR (CKD) >90 (>60 ml/min/1.73 sqM); Albumin 4.3 g/dL (3.5-5.0); Amylase 74 U/L (30-110); Anion Gap 9 mmol/L; Blood Urea Nitrogen 17 mg/dL (7-17); Carbon Dioxide 28 mmol/L (22-30); Chloride 104 mmol/L (98-107); Glucose 114 mg/dL (74-99); Lipase 132 U/L (23-300); Non-African American GFR(CKD) 78 (>60 ml/min/1.73 sqM); Sodium 141 mmol/L (137-145); Total Bilirubin 0.6 mg/dL (0.2-1.3)
--- NOTE | 2021-09-29 12:11 | XR ---
EXAMINATION TYPE: XR KUB DATE OF EXAM: 09/29/2021 Comparison: None Clinical History: 76 year-old female abdominal pain and vomiting Findings: Lung bases are clear. No evidence for free intraperitoneal air. Small air-fluid levels within the left side of the abdomen. No dilated small bowel. No significant st ool burden. Mild stool within the distal sigmoid and rectum. No suspicious calcifications seen. Impression: Small air-fluid levels in the left side of the abdomen suggest a regional ileus or enteritis. Nonobst ructive bowel gas pattern.
[2021-09-29 12:14] LABS: AST 27 U/L (14-36); Alkaline Phosphatase 61 U/L (38-126)
[2021-09-29 13:23] VITALS: BP 131/74; PULSE 55; RESP 18
== END 2021-09-29 13:23 | disposition home or self-care (01) ==
LOC: EC 10:47
DX: K52.9 Noninfective gastroenteritis and colitis, unspecified (principal); I10 Essential (primary) hypertension; M19.90 Unspecified osteoarthritis, unspecified site; Z87.891 Personal history of nicotine dependence; Z88.5 Allergy status to narcotic agent; Z79.899 Other long term (current) drug therapy
CPT/HCPCS: 80053; 82150; 83690; 85025; 74018; 99284; 96374; 96375; J2405; J1885

== ENCOUNTER → 2021-10-03 | Outpatient (CLI) | payer MEDICARE ==
--- NOTE | 2021-10-03 15:52 | CT ---
EXAMINATION TYPE: CT abdomen pelvis w con CT DLP: 374.5 mGycm, Automated exposure control for dose reduction was used. DATE OF EXAM: 10/03/2021 3:31 PM COMPARISON: CT abdomen pelvis 02/06/2011. CLINICAL INDICATION:Female, 76 years old with history of R10.9 ABDOMINAL PAIN; Epigastric abdominal p ain radiating into back. TECHNIQUE: Standard CT of the abdomen and pelvis following the administration of 70 cc of Isovue 30 0 IV contrast material and oral contrast. Coronal and sagittal reformats were performed. FINDINGS: LOWER CHEST: Right lower lobe 8 mm pulmonary nodule (series 4, image 6). ABDOMEN LIVER: Unremarkable GALLBLADDER AND BILE DUCTS: Distended gallbladder with circumferential wall thickening and pericholec ystic fluid with surrounding fat stranding. Pneumobilia. No biliary ductal dilatation. There is assoc iated thickening of the right paracolic fascia. PANCREAS: Unremarkable. SPLEEN: Unremarkable. ADRENAL GLANDS: Unremarkable. KIDNEYS AND URETERS: No evidence of hydronephrosis or renal calculus. The kidneys enhance symmetrical ly. Subcentimeter hyperattenuating lesion within left kidney is too small to characterize. PELVIS BLADDER: Unremarkable REPRODUCTIVE: The uterus is surgically absent. ABDOMEN & PELVIS STOMACH AND BOWEL: Stomach and duodenum are unremarkable. Inflammatory changes and wall thickening in volving the hepatic flexure likely reactive to the gallbladder. The appendix is within normal limits. Colonic diverticulosis without evidence for acute diverticulitis. No evidence of bowel obstruction. PERITONEUM: No evidence of pneumoperitoneum. Small amount of free fluid in the pelvis. VASCULATURE: Moderate atherosclerotic calcifications are present throughout the abdominal aorta and i ts branches. No evidence of aortic aneurysm. MUSCULOSKELETAL: No acute osseous abnormalities. Osteoarthritic changes of the right hip. Degenerativ e changes of the lumbar spine most pronounced at L5-S1. LYMPH NODES: No gross evidence for lymphadenopathy. SOFT TISSUE/ABDOMINAL WALL: Small fat filled umbilical hernia. IMPRESSION: 1. Gallbladder wall thickening/fat stranding and pericholecystic fluid consistent with acute cholecys titis. 2. Pneumobilia. 3. Wall thickening and inflammatory changes involving the hepatic flexure, likely reactive to #1. 4. Colonic diverticulosis as well as for acute diverticulitis. 5. Small amount of free fluid in the pelvis likely reactive to #1. 6. Right lower lobe 8 mm pulmonary nodule. Follow-up CT chest in 6-12 months is recommended. Findings called to and discussed with Dr. Marlys Barton at 3:49 PM on 10/03/2021.
== END | disposition home or self-care (01) ==
LOC: RADCTMAIN 14:00
PROVIDERS: ATTEND Internal Medicine
DX: K57.33 Diverticulitis of large intestine without perforation or abscess with bleeding (principal); R91.1 Solitary pulmonary nodule
CPT/HCPCS: 74177; Q9967 ×2

== ENCOUNTER → 2022-01-01 | Outpatient (CLI) | payer MEDICARE ==
[2022-01-01 14:25] VITALS: BP 134/60; PULSE 61; RESP 17; TEMP 98.5
--- NOTE | 2022-01-01 15:18 | P.HPOB ---
History of Present Illness H&P Date: 01/01/22 Chief Complaint: The patient is here for her routine gynecologic exam and ma mmogram. This is a 76-year-old with an LMP of 1975. The patient is without gynecologic complaints. She continues to use Premarin vaginal cream for vaginal dryness and states this has been helpful. She is status post vaginal hysterectomy for benign reasons. Review of Systems The patient has lost 14 pounds over the last year. She denies respiratory, cardiac, or G.I. problems. Past Medical History Past Medical History: Hypertension, Osteoarthritis (OA) Additional Past Medical History / Comment(s): Osteoporosis(has not used to medication). hx hemorhoids. 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 History of Any Multi-Drug Resistant Organisms: None Reported Past Surgical History: Cholecystectomy, Hysterectomy Additional Past Surgical History / Comment(s): Colonoscopy 2017(next after 10yr). Vaginal hysterectomy in 1975. Past Anesthesia/Blood Transfusion Reactions: No Reported Reaction Past Psychological History: No Psychological Hx Reported Smoking Status: Former smoker Past Alcohol Use History: Rare Additional Past Alcohol Use History / Comment(s): Quit smoking at age 28. 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 - Past Family History Mother Family Medical History: Dementia, Hypertension Medications and Allergies Home Medications Medication Instructions Recorded Confirmed Type nadoloL [Corgard] 20 mg PO HS 10/24/14 01/01/22 History Spironolact/Hydrochlorothiazid 1 tab PO Q48H 06/04/17 01/01/22 History [Aldactazide 25-25 MG] L.acidoph,Paracasei, B.lactis 1 cap PO DAILY 03/22/19 01/01/22 History [Probiotic] Omeprazole [PriLOSEC] 20 mg PO AC-BRKFST 04/11/20 01/01/22 History Acetaminophen Tab [Tylenol] 650 mg PO Q6H #30 tab 10/06/21 01/01/22 Rx Ibuprofen [Motrin] 600 mg PO Q6HR PRN #40 tab 10/06/21 01/01/22 Rx Calcium Carbonate/Vitamin D3 1 cap PO DAILY 01/01/22 01/01/22 History [Calcium 500Mg-Vit D3 15 mcg (600 unit)] Estrogens, Conjugated Cream 1 applic VAGINAL WEEKLY 01/01/22 01/01/22 History [Premarin Vaginal Cream] Allergies Allergy/AdvReac Type Severity Reaction Status Date / Time hydromorphone [From Dilaudid] AdvReac Nausea & Verified 01/01/22 14:05 Vomiting Exam Vital Signs Temp Pulse Resp BP Pulse Ox 01/01/22 14:23 98.5 F 61 17 134/60 98 Intake and Output 01/01/22 01/01/22 01/01/22 06:59 14:59 22:59 Other: Weight 51.256 kg Height 5 feet 4 inches, weight 113 pounds, BMI 19.4. This is a well-developed well-nourished white female who is alert and oriented times 3 in no acute distress. HEENT: Within normal limits. NECK: Supple without mass or thyromegaly. CHEST AND LUNGS: Clear to auscultation. HEART: Regular rate and rhythm. BREASTS: Are without mass or discharge. AXILLARY EXAM: Negative for adenopathy. BACK: Negative for CVA tenderness. ABDOMEN: Soft, nontender, without palpable masses. PELVIC EXAM: External genitalia appears normal with mild to moderate atrophy. Vagina appears normal with mild to moderate atrophy. There is no evidence of prolapse. Bimanual examination is negative for mass or tenderness. RECTAL EXAM: Rectovaginal exam is negative for mass or tenderness and is negative for occult blood. EXTREMITIES: Nontender. IMPRESSION: 1. 76-year-old menopausal female status post vaginal hysterectomy with normal gynecologic exam. 2. History of osteoporosis. The patient has declined treatment in the past. She is not interested in starting Fosamax for osteoporosis. PLAN: 1. Pap smears have been discontinued. 2. Self breast awareness was discussed with the patient. We have also discussed symptoms associated with inflammatory breast cancer. 3. Screening mammogram will be done today. 4. Osteoporosis management was discussed. I have stressed the importance of adequate calcium, vitamin D and regular exercise. Recommended amounts of calcium and vitamin D were also discussed. We have had a long discussion regarding pros and cons of medications such as Fosamax. We have discussed potential risks including risk for esophageal ulceration as well as osteonecrosis of the jaw with jaw surgery or extensive dental surgery. She had a normal creatinine blood tests on 10/05/2021. On that date her serum calcium was low. The patient states this was around the time of her cholecystectomy and she had not been taking in calcium at that time because of GI problems. We will plan on repeating the serum calcium level and the order slip will be mailed to the patient. I will also send the patient and her information on Fosamax and osteoporosis. When she is ready to have a calcium level drawn, I will call her with the results. If this is normal and they want to proceed with Fosamax, we will do so at that time. 5. She will continue Premarin vaginal cream. She states she does not need a new prescription for this at this time. She will call if she does need a new prescription. 6. She was advised to return in one year for her annual well woman exam.
--- NOTE | 2022-01-02 08:41 | MM ---
Reason for Exam: Screening (asymptomatic). Last mammogram was performed 1 year(s) and 1 month(s) ago. Patient History: Menarche at age 11. First Full-Term at age 21. Hysterectomy at age 38. Postmenopausal. Risk Values: Marissa 5 year model risk: 1.5%. NCI Lifetime model risk: 2.8%. Prior Study Comparison: 10/26/2018 Right Diagnostic Mammogram, [facility]. 10/19/2019 Bilateral Screening Mammogram, [facility]. 11/21/2020 Bilateral Screening Mammogram, [facility]. Tissue Density: The breast tissue is almost entirely fat. Findings: Analyzed By CAD. There is no suspicious group of microcalcifications or new suspicious mass in either breast. Overall Assessment: Negative, BI-RAD 1 Management: Screening Mammogram of both breasts in 1 year. A clinical breast exam by your physician is recommended on an annual basis and results should be correlated with mammographic findings. [facility] will attempt to contact patient to return for supplemental views and ultrasound if indicated. Electronically signed and approved by: Derek Magallon DO
== END | disposition home or self-care (01) ==
LOC: WWCWWP 13:55
PROVIDERS: ATTEND Obstetrics & Gynecology
DX: Z12.31 Encounter for screening mammogram for malignant neoplasm of breast (principal)
CPT/HCPCS: 77063; 77067

== ENCOUNTER 2022-12-13 16:15 | Emergency (ER) | payer MEDICARE ==
[2022-12-13 16:25] VITALS: RESP 18; TEMP 97.8
[2022-12-13] MEDS ORDERED: SODIUM CHLORIDE 0.9% 500 ML 500 ML IV STA (16:52)
[2022-12-13] MEDS ORDERED: ADENOSINE 3 MG/ML 2 ML VIAL IVP STA (16:52)
[2022-12-13 17:52] LABS: Basophils # (A) 0.1 k/uL (0-0.2); Basophils % (A) 1 %; Eosinophils # (A) 0.3 k/uL (0-0.7); Eosinophils % (A) 3 %; HCT 29.9 % (34.0-46.0); HGB 9.6 gm/dL (11.4-16.0); Hypochromasia Moderate; Lymphocytes # (A) 1.9 k/uL (1.0-4.8); Lymphocytes % (A) 23 %; MCH 24.9 pg (25.0-35.0); MCHC 32.2 g/dL (31.0-37.0); MCV 77.4 fL (80.0-100.0); Mean Platelet Volume 7.8; Monocytes # (A) 0.5 k/uL (0-1.0); Monocytes % (A) 6 %; Neutrophils # (A) 5.3 k/uL (1.3-7.7); Neutrophils % (A) 65 %; Platelet Count 362 k/uL (150-450); RBC 3.86 m/uL (3.80-5.40); RDW 14.6 % (11.5-15.5); WBC 8.2 k/uL (3.8-10.6)
[2022-12-13 18:16] LABS: INR 0.9 (<1.2); Partial Thromboplastin Time 21.7 sec (22.0-30.0); Prothrombin Time 10.4 sec (10.0-12.5)
[2022-12-13 18:18] LABS: ALT 15 U/L (4-34); AST 28 U/L (14-36); African American GFR (CKD) 63 (>60 ml/min/1.73 sqM); Alkaline Phosphatase 78 U/L (38-126); Anion Gap 11 mmol/L; Blood Urea Nitrogen 24 mg/dL (7-17); Calcium 9.1 mg/dL (8.4-10.2); Carbon Dioxide 22 mmol/L (22-30); Chloride 105 mmol/L (98-107); Glucose 93 mg/dL (74-99); Magnesium 2.1 mg/dL (1.6-2.3); Non-African American GFR(CKD) 55 (>60 ml/min/1.73 sqM); Potassium 4.1 mmol/L (3.5-5.1); Sodium 138 mmol/L (137-145); Total Bilirubin 0.4 mg/dL (0.2-1.3); Total Protein 6.6 g/dL (6.3-8.2)
[2022-12-13 18:55] VITALS: BP 121/64; PULSE 78
--- NOTE | 2022-12-13 19:17 | ED ---
Chest Pain HPI - General Chief Complaint: Chest Pain Stated Complaint: chest pain and upper back pain Time Seen by Provider: 12/13/22 16:25 Source: patient Mode of arrival: wheelchair Limitations: no limitations - History of Present Illness Initial Comments: Patient is 77-year-old woman with history of previous SVT, who presents to have evaluation of chest pain and a feeling like her heart is pounding that is been going on nearly 3 hours. MD Complaint: chest pain Onset/Timin -: hour(s) Onset: during rest Pain Location: substernal Pain Radiation: none Severity: moderate Quality: heaviness Consistency: constant Improves With: nothing Worsens With: nothing Other Symptoms: palpitations Treatments Prior to Arrival: none - Related Data Home Medications Medication Instructions Recorded Confirmed nadoloL [Corgard] 20 mg PO HS 10/24/14 12/13/22 Spironolact/Hydrochlorothiazid 0.5 tab PO Q2D 06/04/17 12/13/22 [Aldactazide 25-25 MG] L.acidoph,Paracasei, B.lactis 1 cap PO DAILY 03/22/19 12/13/22 [Probiotic] Omeprazole [PriLOSEC] 20 mg PO AC-BRKFST 04/11/20 12/13/22 Calcium Carbonate/Vitamin D3 1 cap PO DAILY 01/01/22 12/13/22 [Calcium 500Mg-Vit D3 15 mcg (600 unit)] Estrogens, Conjugated Cream 1 applic VAGINAL AGUILLON 01/01/22 12/13/22 [Premarin Vaginal Cream] Amoxic-Pot Clav 875-125Mg 1 tab PO Q12HR 12/13/22 12/13/22 [Augmentin 875-125] Allergies Allergy/AdvReac Type Severity Reaction Status Date / Time hydromorphone [From Dilaudid] AdvReac Nausea & Verified 12/13/22 18:19 Vomiting Review of Systems ROS Statement: Those systems with pertinent positive or pertinent negative responses have been documented in the HPI. ROS Other: All systems not noted in ROS Statement are negative. Constitutional: Denies: fever, chills, weakness Respiratory: Reports: dyspnea. Denies: cough, wheezes Cardiovascular: Reports: chest pain, palpitations. Denies: orthopnea, edema, syncope Gastrointestinal: Denies: abdominal pain, nausea, vomiting, diarrhea Genitourinary: Denies: dysuria, hematuria Musculoskeletal: Denies: back pain Skin: Denies: rash Neurological: Denies: headache, weakness, numbness Psychiatric: Reports: anxiety EKG Findings - EKG Results: EKG: interpreted by SANGEETAD, normal axis, normal QRS EKG shows: tachycardia (Rate approximately 131) - Blocks, [place], Hypertrophy, ST Abn: Repolarization changes or abnormalities: ST suggestive of injury Past Medical History Past Medical History: Hypertension, Osteoarthritis (OA) Additional Past Medical History / Comment(s): Osteoporosis(has not used to medication). hx hemorhoids. 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 History of Any Multi-Drug Resistant Organisms: None Reported Past Surgical History: Cholecystectomy, Hysterectomy Additional Past Surgical History / Comment(s): Colonoscopy 2018(next after 10yr). Vaginal hysterectomy in 1975. Past Anesthesia/Blood Transfusion Reactions: No Reported Reaction Past Psychological History: No Psychological Hx Reported Smoking Status: Former smoker Past Alcohol Use History: Rare Past Drug Use History: None Reported - Past Family History Mother Family Medical History: Dementia, Hypertension General Exam Limitations: no limitations General appearance: alert, anxious Head exam: Present: atraumatic, normocephalic Eye exam: Present: normal appearance. Absent: scleral icterus, conjunctival injection ENT exam: Present: normal oropharynx Neck exam: Present: normal inspection Respiratory exam: Present: normal lung sounds bilaterally. Absent: respiratory distress, wheezes, rales, rhonchi, stridor, accessory muscle use Cardiovascular Exam: Present: normal rhythm, tachycardia, normal heart sounds. Absent: systolic murmur, diastolic murmur, rubs, gallop GI/Abdominal exam: Present: soft. Absent: distended, tenderness, guarding, rebound, rigid, mass Extremities exam: Present: normal inspection, normal capillary refill. Absent: pedal edema, calf tenderness Back exam: Present: normal inspection. Absent: CVA tenderness (R), CVA tenderness (L) Neurological exam: Present: alert Skin exam: Present: warm, dry, intact, normal color. Absent: rash Course Vital Signs 12/13/22 12/13/22 16:20 18:34 Temperature 97.8 F Pulse Rate 138 H 78 Respiratory 18 18 Rate Blood Pressure 102/61 121/64 O2 Sat by Pulse 98 98 Oximetry Chest Pain MDM - MDM The patient had chest x-ray which I interpreted as negative for acute infiltrate, pneumothorax, congestive heart failure Patient is in SVT, and chemical cardioversion is performed. The patient is placed on monitors, oxygen, and under my supervision adenosine is given which did cause patient to revert to sinus rhythm Was pt. sent in by a medical professional or institution (, [facility], PRIMARY OPERATOR, urgent care, hospital, or group home...) When possible be specific @ -[No] Did you speak to anyone other than the patient for history (EMS, parent, family, police, friend...)? What history was obtained from this source @ -[ did give history Did you review nursing and triage notes (agree or disagree)? Why? @ -[I reviewed and agree with nursing and triage notes] Were old charts reviewed (outside hosp., previous admission, EMS record, old EKG, old radiological studies, urgent care reports/EKG's, group home records)? Report findings @ -[No old charts were reviewed] Differential Diagnosis (chest pain, altered mental status, abdominal pain women, abdominal pain men, vaginal bleeding, weakness, fever, dyspnea, syncope, headache, dizziness, GI bleed, back pain, seizure, CVA, palpatations, mental health, musculoskeletal)? @ -[Differential Palpitations Ventricular arrhythmias, atrial arrhythmias, myocardial infarction, anemia, thyrotoxicosis, electrolyte imbalance, hypokalemia, pulmonary embolism, pulmonary disease, drugs, alcohol, anxiety, stress.... This is not meant to be an all-inclusive list. EKG interpreted by me (3pts min.). @ -[I interpreted As above] X-rays interpreted by me (1pt min.). @ -[I interpreted as above CT interpreted by me (1pt min.). @ -[None done] U/S interpreted by me (1pt. min.). @ -[None done] What testing was considered but not performed or refused? (CT, X-rays, U/S, labs)? Why? @ -[None] What meds were considered but not given or refused? Why? @ -[None] Did you discuss the management of the patient with other professionals (professionals i.e. [facility], PRIMARY OPERATOR, lab, RT, psych nurse, social sciences department chair, kiln packer, teacher, planned giving officer, case resource manager)? Give summary @ -[No] Was smoking cessation discussed for >3mins.? @ -[No] Was critical care preformed (if so, how long)? @ -[Yes 30 minutes Were there social determinants of health that impacted care today? How? (Homelessness, low income, unemployed, alcoholism, drug addiction, transportation, low edu. Level, literacy, decrease access to med. care, longterm, rehab)? @ -[No] Was there de-escalation of care discussed even if they declined (Discuss DNR or withdrawal of care, Hospice)? DNR status @ -[No] What co-morbidities impacted this encounter? (DM, HTN, Smoking, COPD, CAD, Cancer, CVA, ARF, Chemo, Hep., AIDS, mental health diagnosis, sleep apnea, morbid obesity)? @ -[None] Was patient admitted / discharged? Hospital course, mention meds given and route, prescriptions, significant lab abnormalities, going to OR and other pertinent info. @ -Patient is 77-year-old woman here with chest discomfort and palpitations. Exam and EKG consistent with SVT. The patient is given adenosine which did cause her to revert to sinus rhythm. After the results of the patient's workup were complete, I discussed these and she was feeling better and wanted to go home. We discussed appropriate further care and follow-up as well as return parameters Undiagnosed new problem with uncertain prognosis? @ -[No] Drug Therapy requiring intensive monitoring for toxicity (Heparin, Nitro, Insulin, Cardizem)? @ -[Adenosine Were any procedures done? @ -[Chemical cardioversion Diagnosis/symptom? @ -[Acute SVT Acute, or Chronic, or Acute on Chronic? @ -[Acute Uncomplicated (without systemic symptoms) or Complicated (systemic symptoms)? @ -[Complicated Side effects of treatment? @ -[No] Exacerbation, Progression, or Severe Exacerbation? @ -[No] Poses a threat to life or bodily function? How? (Chest pain, [place], [place], pneumonia, PE, COPD, DKA, ARF, appy, cholecystitis, CVA, Diverticulitis, Homicidal, Suicidal, threat to staff... and all critical care pts) @ -[Yes untreated SVT may lead to cardiac ischemia or further unstable rhythm Disposition Clinical Impression: SVT (supraventricular tachycardia) Disposition: HOME SELF-CARE Condition: Good Instructions (If sedation given, give patient instructions): Supraventricular Tachycardia (ED) Is patient prescribed a controlled substance at d/c from ED?: No Referrals: Lyndon Glover MD [Primary Care Provider] - 1-2 days Marlys Llamas MD [STAFF PHYSICIAN] - 1-2 days
--- NOTE | 2022-12-13 20:24 | XR ---
EXAM: XR chest 1V portable CLINICAL INDICATION:Female, 77 years old with history of chest pain; [facility] COMPARISON: 03/27/2019 TECHNIQUE: Chest single view. FINDINGS: Lines/tubes/devices: EKG leads overlie the chest. No indwelling lines are seen. Cardiomediastinum: Cardiac silhouette appears normal in size. Unremarkable mediastinal silhouette. Jen appear similar to previous. Vasculature: No increased pulmonary vasculature. Lungs/pleura: No consolidation, sizeable effusion, or visible pneumothorax. Bones/soft tissues: Bony thorax appears grossly intact as seen. Regional soft tissues appear unremarkable. IMPRESSION: No acute cardiopulmonary findings.
== END 2022-12-13 20:56 | disposition home or self-care (01) ==
LOC: EC 16:15
DX: I47.10 Supraventricular tachycardia, unspecified (principal); I10 Essential (primary) hypertension; M19.90 Unspecified osteoarthritis, unspecified site; M81.0 Age-related osteoporosis without current pathological fracture; Z87.891 Personal history of nicotine dependence; Z88.5 Allergy status to narcotic agent; Z79.899 Other long term (current) drug therapy
CPT/HCPCS: 36415; 93005; 80053; 83735; 84484; 85025; 85610; 85730; 71045; 99285; 96374; 96361; J0153

== ENCOUNTER 2023-01-07 18:00 | Emergency (ER) | payer MEDICARE ==
--- NOTE | 2023-01-07 18:05 | ED ---
Female Urogenital HPI - General Source: patient, family, RN notes reviewed <Lul Cristina - Last Filed: 01/07/23 18:02> - General Source: patient, family, RN notes reviewed Mode of arrival: ambulatory Limitations: no limitations <Malgorzata Pereyra - Last Filed: 01/07/23 22:40> - General Chief complaint: Urogenital Stated complaint: UTI Time Seen by Provider: 01/07/23 18:02 - History of Present Illness Initial comments: Patient is a 77-year-old female presented ER from urgent care with chief complaint of urinary tract infections. Patient has been on 3 antibiotics recently and has failed. She is sent here for IV antibiotics. Patient denies any current fevers, chills, night sweats. (uLl Cristina) When I went to evaluate the patient, states that she mostly recently finished a dose of Levaquin. After she finishes a course of antibiotics, she starts to feel better, and symptoms then return. Today, states that she had mild burning with urination and went to urgent care. They advised that because she had been treated 3 times, she should come to the emergency department for further management and IV antibiotics. However, states that she feels fine at this point. She essentially does not have any urinary symptoms now and is confused as to why they sent her here. (Malgorzata Pereyra) - Related Data Home Medications Medication Instructions Recorded Confirmed nadoloL [Corgard] 20 mg PO HS 10/24/14 01/07/23 Spironolact/Hydrochlorothiazid 0.5 tab PO Q2D 06/04/17 01/07/23 [Aldactazide 25-25 MG] L.acidoph,Paracasei, B.lactis 1 cap PO DAILY 03/22/19 01/07/23 [Probiotic] Omeprazole [PriLOSEC] 20 mg PO AC-BRKFST 04/11/20 01/07/23 Calcium Carbonate/Vitamin D3 1 cap PO DAILY 01/01/22 01/07/23 [Calcium 500Mg-Vit D3 15 mcg (600 unit)] Cholecalciferol [Vitamin D3 (25 25 mcg PO DAILY 01/07/23 01/07/23 Mcg = 1000 Iu)] Iron 18 mg PO DAILY 01/07/23 01/07/23 Previous Rx's Medication Instructions Recorded Estrogens, Conjugated Cream 1 gram VAGINAL DIRECTED #42.5 01/07/23 [Premarin Vaginal Cream] gram Allergies Allergy/AdvReac Type Severity Reaction Status Date / Time hydromorphone [From Dilaudid] AdvReac Nausea & Verified 01/07/23 14:14 Vomiting Review of Systems ROS Other: All systems not noted in ROS Statement are negative. <Lul rCistina - Last Filed: 01/07/23 18:02> ROS Other: All systems not noted in ROS Statement are negative. <Malgorzata Pereyra - Last Filed: 01/07/23 22:40> ROS Statement: Those systems with pertinent positive or pertinent negative responses have been documented in the HPI. Past Medical History Past Medical History: Hypertension, Osteoarthritis (OA) Additional Past Medical History / Comment(s): Osteoporosis(declined medication). hx hemorhoids. Iron deficiency anemia. 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 History of Any Multi-Drug Resistant Organisms: None Reported Past Surgical History: Cholecystectomy, Hysterectomy Additional Past Surgical History / Comment(s): Colonoscopy 2018(next after 10yr). Vaginal hysterectomy in 1975. Past Anesthesia/Blood Transfusion Reactions: No Reported Reaction Past Psychological History: No Psychological Hx Reported Smoking Status: Former smoker Past Alcohol Use History: Rare (2 or 3 drinks per year.) Additional Past Alcohol Use History / Comment(s): Quit smoking at age 28. Past Drug Use History: None Reported - Past Family History Mother Family Medical History: Dementia, Hypertension <Lul Cristina - Last Filed: 01/07/23 18:02> General Exam <Lul Cristina - Last Filed: 01/07/23 18:02> Limitations: no limitations General appearance: alert, in no apparent distress Head exam: Present: atraumatic, normocephalic, normal inspection Respiratory exam: Present: normal lung sounds bilaterally. Absent: respiratory distress, wheezes, rales, rhonchi, stridor Cardiovascular Exam: Present: regular rate, normal rhythm, normal heart sounds. Absent: systolic murmur, diastolic murmur, rubs, gallop, clicks GI/Abdominal exam: Present: soft, normal bowel sounds. Absent: distended, tenderness, guarding, rebound, rigid Back exam: Absent: CVA tenderness (R), CVA tenderness (L) Neurological exam: Present: alert, oriented X3, CN II-XII intact Psychiatric exam: Present: normal affect, normal mood Skin exam: Present: warm, dry, intact, normal color. Absent: rash <Malgorzata Pereyra - Last Filed: 01/07/23 22:40> - General Exam Comments Initial Comments: Visual Physical Exam Vital signs reviewed General: Well-appearing, nontoxic, no acute distress. Head: Normocephalic, atraumatic Eyes: PERRLA, EOMI ENT: Airway patent Chest: Nonlabored breathing Skin: No visual rash, normal skin tone Neuro: Alert and oriented 3 Musculoskeletal: No gross abnormalities (Lul Cristina) Course Vital Signs 01/07/23 01/07/23 18:28 20:44 Temperature 97.4 F L 97.6 F Pulse Rate 59 L 62 Respiratory 16 16 Rate Blood Pressure 156/92 142/86 O2 Sat by Pulse 98 99 Oximetry Medical Decision Making <Lul Cristina - Last Filed: 01/07/23 18:02> - Lab Data Result diagrams: 01/07/23 19:19 01/07/23 19:19 <Malgorzata Pereyra - Last Filed: 01/07/23 22:40> - Medical Decision Making I performed the quick note portion of the exam. Electronically signed by Lul Cristina PA-C (Lul Cristina) This is a 77-year-old female who presents to the emergency department for recent urinary symptoms. Was pt. sent in by a medical professional or institution? @ -Urgent care Did you speak to anyone other than the patient for history? @ -No Did you review nursing and triage notes? @ -Yes, and I agree, it is accurate with regards to the patient's symptoms. Were old charts reviewed? @ -No Differential Diagnosis? @ -Differential Urinary Symptoms: UTI, STI, pyelonephritis, ureteral calculus, overactive bladder, this is not meant to be in A list. EKG interpreted by me (3pts min.)? @ -Not obtained X-rays interpreted by me (1pt min.)? @ -Not obtained CT interpreted by me (1pt min.)? @ -Not obtained U/S interpreted by me (1pt. min.)? @ -Not obtained What testing was considered but not performed? (CT, X-rays, U/S, labs)? Why? @ -None What meds were considered but not given? Why? @ -None Did you discuss the management of the patient with other professionals? @ -No Did you reconcile home meds? @ -No Was smoking cessation discussed for >3mins.? @ -No Was critical care preformed (if so, how long)? @ -No Were there social determinants of health that impacted care today? How? (Homelessness, low income, unemployed, alcoholism, drug addiction, transportation, low edu. Level, literacy, decrease access to med. care, long-term, rehab)? @ -No Was there de-escalation of care discussed even if they declined? (Discuss DNR or withdrawal of care, Hospice)? @ -No What co-morbidities impacted this encounter? (DM, HTN, Smoking, COPD, CAD, Cancer, CVA, Hep., AIDS, mental health diagnosis, sleep apnea, morbid obesity)? @ -None Was patient admitted / discharged? @ -Discharged. Lab work obtained and found to be nonactionable. Urinalysis negative for any signs of infection. Discussed with the patient that at this point her urine does not show any residual infection and no antibiotics are indicated. Patient states that she is currently asymptomatic and not entirely quite sure why urgent care advised she come over here, and requested discharge home. She was discharged home in stable condition with instruction to follow up with her primary care provider. Undiagnosed new problem with uncertain prognosis? @ -None Drug Therapy requiring intensive monitoring for toxicity (Heparin, Nitro, Insulin, Cardizem)? @ -None Were any procedures done? @ -None Diagnosis/symptom? @ -Urinary symptoms Acute, or Chronic, or Acute on Chronic? @ -Acute Uncomplicated (without systemic symptoms) or Complicated (systemic symptoms)? @ -Uncomplicated Side effects of treatment? @ -None Exacerbation, Progression, or Severe Exacerbation] @ -Not applicable Poses a threat to life or bodily function? @ -No Return precautions reviewed in depth, the patient is instructed to return to the emergency department with any new, worsening, or concerning symptoms. Patient verbalized understanding. This case was discussed in detail with the attending ED physician, Dr. Tinsley. Presentation, findings, and treatment plan discussed in detail as well. (Malgorzata Pereyra) - Lab Data Lab Results 01/07/23 01/07/23 01/07/23 Range/Units 19:00 19:19 19:19 WBC 8.4 (3.8-10.6) k/uL RBC 4.00 (3.80-5.40) m/uL Hgb 10.2 L (11.4-16.0) gm/dL Hct 31.9 L (34.0-46.0) % MCV 79.5 L (80.0-100.0) fL MCH 25.4 (25.0-35.0) pg MCHC 31.9 (31.0-37.0) g/dL RDW 17.0 H (11.5-15.5) % Plt Count 375 (150-450) k/uL MPV 7.5 Neutrophils % 64 % Lymphocytes % 27 % Monocytes % 5 % Eosinophils % 2 % Basophils % 1 % Neutrophils # 5.4 (1.3-7.7) k/uL Lymphocytes # 2.3 (1.0-4.8) k/uL Monocytes # 0.4 (0-1.0) k/uL Eosinophils # 0.2 (0-0.7) k/uL Basophils # 0.0 (0-0.2) k/uL Hypochromasia Moderate Anisocytosis Slight Sodium 138 (137-145) mmol/L Potassium 3.8 (3.5-5.1) mmol/L Chloride 103 (98-107) mmol/L Carbon Dioxide 27 (22-30) mmol/L Anion Gap 8 mmol/L BUN 19 H (7-17) mg/dL Creatinine 0.75 (0.52-1.04) mg/dL Est GFR (CKD-EPI)AfAm 88 (>60 ml/min/1.73 sqM) Est GFR (CKD-EPI)NonAf 76 (>60 ml/min/1.73 sqM) Glucose 95 (74-99) mg/dL Calcium 9.2 (8.4-10.2) mg/dL Total Bilirubin 0.5 (0.2-1.3) mg/dL AST 25 (14-36) U/L ALT 14 (4-34) U/L Alkaline Phosphatase 62 (38-126) U/L Total Protein 6.9 (6.3-8.2) g/dL Albumin 4.2 (3.5-5.0) g/dL Urine Color Light Yellow Urine Appearance Clear (Clear) Urine pH 6.0 (5.0-8.0) Ur Specific [place] 1.020 (1.001-1.035) Urine Protein Negative (Negative) Urine Glucose (UA) Negative (Negative) Urine Ketones Negative (Negative) Urine Blood Negative (Negative) Urine Nitrite Negative (Negative) Urine Bilirubin Negative (Negative) Urine Urobilinogen <2.0 (<2.0) mg/dL Ur Leukocyte Esterase Negative (Negative) Disposition <Lul Cristina - Last Filed: 01/07/23 18:02> Is patient prescribed a controlled substance at d/c from ED?: No <Malgorzata Pereyra - Last Filed: 01/07/23 22:40> Clinical Impression: Lower urinary tract symptoms Disposition: HOME SELF-CARE Additional Instructions: Return to the emergency department with any new, worsening, or concerning symptoms. Follow up with your primary care provider in 1-2 days. Referrals: Lyndon Glover MD [Primary Care Provider] - 1-2 days
[2023-01-07 18:45] VITALS: RESP 16
[2023-01-07 19:16] LABS: Appearance,Urine Clear (Clear); Bilirubin,Urine Negative (Negative); Blood,Urine Negative (Negative); Color,Urine Light Yellow; Glucose,Urine (UA) Negative (Negative); Ketones,Urine Negative (Negative); Leukocyte Esterase,Urine Negative (Negative); Nitrite,Urine Negative (Negative); Protein,Urine Negative (Negative); Urobilinogen,Urine <2.0 mg/dL (<2.0)
[2023-01-07 20:50] VITALS: BP 142/86; PULSE 62; TEMP 97.6
[2023-01-07 20:52] LABS: Anisocytosis Slight; Basophils % (A) 1 %; Eosinophils # (A) 0.2 k/uL (0-0.7); Eosinophils % (A) 2 %; HCT 31.9 % (34.0-46.0); HGB 10.2 gm/dL (11.4-16.0); Hypochromasia Moderate; Lymphocytes # (A) 2.3 k/uL (1.0-4.8); Lymphocytes % (A) 27 %; MCH 25.4 pg (25.0-35.0); MCHC 31.9 g/dL (31.0-37.0); MCV 79.5 fL (80.0-100.0); Mean Platelet Volume 7.5; Monocytes # (A) 0.4 k/uL (0-1.0); Monocytes % (A) 5 %; Neutrophils # (A) 5.4 k/uL (1.3-7.7); Neutrophils % (A) 64 %; Platelet Count 375 k/uL (150-450); WBC 8.4 k/uL (3.8-10.6)
[2023-01-07 21:02] LABS: ALT 14 U/L (4-34); AST 25 U/L (14-36); African American GFR (CKD) 88 (>60 ml/min/1.73 sqM); Albumin 4.2 g/dL (3.5-5.0); Alkaline Phosphatase 62 U/L (38-126); Anion Gap 8 mmol/L; Blood Urea Nitrogen 19 mg/dL (7-17); Calcium 9.2 mg/dL (8.4-10.2); Carbon Dioxide 27 mmol/L (22-30); Chloride 103 mmol/L (98-107); Glucose 95 mg/dL (74-99); Non-African American GFR(CKD) 76 (>60 ml/min/1.73 sqM); Potassium 3.8 mmol/L (3.5-5.1); Sodium 138 mmol/L (137-145); Total Bilirubin 0.5 mg/dL (0.2-1.3); Total Protein 6.9 g/dL (6.3-8.2)
== END 2023-01-07 20:59 | disposition home or self-care (01) ==
LOC: EC 18:00
DX: R39.9 Unspecified symptoms and signs involving the genitourinary system (principal); I10 Essential (primary) hypertension; Z87.891 Personal history of nicotine dependence
CPT/HCPCS: 36415; 80053; 81003; 85025; 99283

== ENCOUNTER → 2023-01-07 | Outpatient (CLI) | payer MEDICARE ==
[2023-01-07 14:16] VITALS: BP 137/55; PULSE 64; RESP 16
--- NOTE | 2023-01-07 15:22 | P.HPOB ---
History of Present Illness H&P Date: 01/07/23 Chief Complaint: The patient is here for her routine gynecologic exam and ma mmogram. This is a 77-year-old with an LMP of 1975. The patient is status post vaginal hysterectomy for benign reasons. She and her and states they have not been sexually active since her 's prostate cancer surgery. They have also not been using the Premarin vaginal cream more recently. She has had 2 urinary tract infections over the past few months. She is otherwise without gynecologic complaints. Review of Systems The patient has gained 3 pounds over the last year. She denies respiratory, cardiac, or G.I. problems. Past Medical History Past Medical History: Hypertension, Osteoarthritis (OA) Additional Past Medical History / Comment(s): Osteoporosis(declined medication). hx hemorhoids. Iron deficiency anemia. 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 History of Any Multi-Drug Resistant Organisms: None Reported Past Surgical History: Cholecystectomy, Hysterectomy Additional Past Surgical History / Comment(s): Colonoscopy 2017(next after 10yr). Vaginal hysterectomy in 1975. Past Anesthesia/Blood Transfusion Reactions: No Reported Reaction Past Psychological History: No Psychological Hx Reported Smoking Status: Former smoker Past Alcohol Use History: Rare (2 or 3 drinks per year.) Additional Past Alcohol Use History / Comment(s): Quit smoking at age 28. Past Drug Use History: None Reported Additional History: She has been since 1972 and is no longer sexually active. 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 - Past Family History Mother Family Medical History: Dementia, Hypertension Medications and Allergies Home Medications Medication Instructions Recorded Confirmed Type nadoloL [Corgard] 20 mg PO HS 10/24/14 01/07/23 History Spironolact/Hydrochlorothiazid 0.5 tab PO Q2D 06/04/17 01/07/23 History [Aldactazide 25-25 MG] L.acidoph,Paracasei, B.lactis 1 cap PO DAILY 03/22/19 01/07/23 History [Probiotic] Omeprazole [PriLOSEC] 20 mg PO AC-BRKFST 04/11/20 01/07/23 History Calcium Carbonate/Vitamin D3 1 cap PO DAILY 01/01/22 01/07/23 History [Calcium 500Mg-Vit D3 15 mcg (600 unit)] Estrogens, Conjugated Cream 1 applic VAGINAL AGUILLON 01/01/22 01/07/23 History [Premarin Vaginal Cream] Cholecalciferol [Vitamin D3 (25 25 mcg PO DAILY 01/07/23 01/07/23 History Mcg = 1000 Iu)] Iron 18 mg PO DAILY 01/07/23 01/07/23 History Allergies Allergy/AdvReac Type Severity Reaction Status Date / Time hydromorphone [From Dilaudid] AdvReac Nausea & Verified 01/07/23 14:14 Vomiting Exam Vital Signs Pulse Resp BP Pulse Ox 01/07/23 14:08 64 16 137/55 100 Intake and Output 01/07/23 01/07/23 01/07/23 06:59 14:59 22:59 Other: Weight 52.617 kg Height 5 feet 4-1/2 inches, weight 116 pounds, BMI 19.6. This is a well-developed well-nourished white female who is alert and oriented times 3 in no acute distress. HEENT: Within normal limits. NECK: Supple without mass or thyromegaly. CHEST AND LUNGS: Clear to auscultation. HEART: Regular rate and rhythm. BREASTS: Are without mass or discharge. AXILLARY EXAM: Negative for adenopathy. BACK: Negative for CVA tenderness. ABDOMEN: Soft, nontender, without palpable masses. PELVIC EXAM: External genitalia appears normal with moderate atrophy. Vagina appears normal with moderate atrophy. There is no evidence of prolapse. Bimanual examination is negative for mass or tenderness. RECTAL EXAM: Rectovaginal exam is negative for mass or tenderness and is negative for occult blood. EXTREMITIES: Nontender. IMPRESSION: 1. 77-year-old menopausal female status post vaginal hysterectomy with normal gynecologic exam 2. History of osteoporosis and there again declining prescription medication for this. 3. Recent recurrent UTIs. PLAN: 1. Pap smears have been discontinued. 2. Self breast awareness was discussed with the patient. We have also discussed symptoms associated with inflammatory breast cancer. 3. Screening mammogram will be done today. 4. She no longer is using the Premarin vaginal cream for vaginal dryness associated with sexual intercourse, but we have discussed how she may benefit from using the cream if she has been having urinary tract infections. She will resume using the cream to see if it helps prevent urinary tract infections. She will resume Premarin vaginal cream 1 g into the vagina to 2 times weekly. The electronic prescription will be sent to my her pharmacy in [place]. 5. Osteoporosis management was discussed. I have stressed the importance of adequate calcium, vitamin D and regular exercise. Recommended amounts of calcium and vitamin D were also discussed. She recently had blood work done on 12/13/2022 which showed a normal creatinine and normal serum calcium level. We discussed how she could be started on Fosamax, but she is declining treatment for this at this time. She was instructed to call if she changes her mind. We have reviewed the benefits and risks associated with this medication. She understands that she is at increased risk for bone fracture. We have discussed risks such as possible increased risk for esophageal ulceration and the problem with osteonecrosis of the jaw. I recommended that she repeat the bone density test in 1 year. 6. She was advised to return in one year for her annual well woman exam.
--- NOTE | 2023-01-09 00:01 | MM ---
Reason for Exam: Screening (asymptomatic). Last screening mammogram was performed 12 month(s) ago. Patient History: Menarche at age 11. First Full-Term at age 21. Hysterectomy at age 38. Postmenopausal. Risk Values: Marissa 5 year model risk: 1.5%. NCI Lifetime model risk: 2.5%. Prior Study Comparison: 10/19/2019 Bilateral Screening Mammogram, [facility]. 11/21/2020 Bilateral Screening Mammogram, [facility]. 01/01/2022 Bilateral MG 3D screening mammo w/cad, [facility]. Tissue Density: There are scattered fibroglandular densities. Findings: Analyzed By CAD. There is no suspicious group of microcalcifications or new suspicious mass in either breast. Overall Assessment: Negative, BI-RAD 1 Management: Screening Mammogram of both breasts in 1 year. . Patient should continue monthly self-breast exams. A clinical breast exam by your physician is recommended on an annual basis. This exam should not preclude additional follow-up of suspicious palpable abnormalities. Note on Marissa scores and lifetime risk: 1. A Marissa score greater than 3% is considered moderate risk. If this is the case, consider specialist referral to assess eligibility for a risk reducing agent. 2. If overall lifetime risk for the development of breast cancer is 20% or higher, the patient may qualify for future screening with alternating mammogram and breast MRI. Electronically signed and approved by: Meagan Clifford M.D. Radiologist
== END ==
LOC: WWCWWP 13:54
PROVIDERS: ATTEND Obstetrics & Gynecology
DX: Z12.31 Encounter for screening mammogram for malignant neoplasm of breast (principal); M81.0 Age-related osteoporosis without current pathological fracture; N39.0 Urinary tract infection, site not specified; I10 Essential (primary) hypertension; M19.90 Unspecified osteoarthritis, unspecified site; Z87.891 Personal history of nicotine dependence; Z78.0 Asymptomatic menopausal state; Z90.710 Acquired absence of both cervix and uterus; Z90.49 Acquired absence of other specified parts of digestive tract; Z88.5 Allergy status to narcotic agent; Z79.899 Other long term (current) drug therapy
CPT/HCPCS: 77063; 77067

== ENCOUNTER 2023-01-18 12:34 | Emergency (ER) | payer MEDICARE ==
[2023-01-18 13:03] VITALS: RESP 18; TEMP 98
--- NOTE | 2023-01-18 13:50 | ED ---
General Adult HPI - General Chief complaint: Abdominal Pain Stated complaint: Abdominal pain Time Seen by Provider: 01/18/23 13:38 Source: patient, family, RN notes reviewed Mode of arrival: ambulatory Limitations: no limitations - History of Present Illness Initial comments: Patient is a pleasant 77-year-old female presenting to the emergency Department with abdominal discomfort. Onset of symptoms was prior to arrival. Patient ate food and following this had as comfort of her upper abdomen. Discomfort lasted around 10 minutes and has resolved. Pearly patient is symptom-free. No nausea vomiting. No constipation or diarrhea. No history of similar symptoms previously. - Related Data Home Medications Medication Instructions Recorded Confirmed nadoloL [Corgard] 20 mg PO HS 10/24/14 01/07/23 Spironolact/Hydrochlorothiazid 0.5 tab PO Q2D 06/04/17 01/07/23 [Aldactazide 25-25 MG] L.acidoph,Paracasei, B.lactis 1 cap PO DAILY 03/22/19 01/07/23 [Probiotic] Omeprazole [PriLOSEC] 20 mg PO AC-BRKFST 04/11/20 01/07/23 Calcium Carbonate/Vitamin D3 1 cap PO DAILY 01/01/22 01/07/23 [Calcium 500Mg-Vit D3 15 mcg (600 unit)] Cholecalciferol [Vitamin D3 (25 25 mcg PO DAILY 01/07/23 01/07/23 Mcg = 1000 Iu)] Iron 18 mg PO DAILY 01/07/23 01/07/23 Previous Rx's Medication Instructions Recorded Estrogens, Conjugated Cream 1 gram VAGINAL DIRECTED #42.5 01/07/23 [Premarin Vaginal Cream] gram Allergies Allergy/AdvReac Type Severity Reaction Status Date / Time hydromorphone [From Dilaudid] AdvReac Nausea & Verified 01/07/23 14:14 Vomiting Review of Systems ROS Statement: Those systems with pertinent positive or pertinent negative responses have been documented in the HPI. ROS Other: All systems not noted in ROS Statement are negative. Constitutional: Denies: fever Eyes: Denies: eye pain ENT: Denies: ear pain Respiratory: Denies: cough Cardiovascular: Denies: chest pain Endocrine: Denies: fatigue Gastrointestinal: Reports: as per HPI, abdominal pain. Denies: nausea, vomiting, diarrhea, constipation Genitourinary: Denies: dysuria Musculoskeletal: Denies: back pain Skin: Denies: rash Neurological: Denies: weakness Past Medical History Past Medical History: GERD/Reflux, Hypertension, Osteoarthritis (OA) Additional Past Medical History / Comment(s): Osteoporosis(declined medication). hx hemorhoids. Iron deficiency anemia. 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 History of Any Multi-Drug Resistant Organisms: None Reported Past Surgical History: Cholecystectomy, Hysterectomy Additional Past Surgical History / Comment(s): Colonoscopy 2018(next after 10yr). Vaginal hysterectomy in 1975. Past Anesthesia/Blood Transfusion Reactions: No Reported Reaction Past Psychological History: No Psychological Hx Reported Smoking Status: Former smoker Past Alcohol Use History: Rare Past Drug Use History: None Reported - Past Family History Mother Family Medical History: Dementia, Hypertension General Exam Limitations: no limitations General appearance: alert, in no apparent distress Head exam: Present: normocephalic Eye exam: Present: normal appearance Neck exam: Present: normal inspection Respiratory exam: Present: normal lung sounds bilaterally Cardiovascular Exam: Present: regular rate, normal rhythm GI/Abdominal exam: Present: soft, normal bowel sounds. Absent: distended, tenderness, guarding, rebound, rigid, pulsatile mass Extremities exam: Present: normal inspection Neurological exam: Present: alert Psychiatric exam: Present: normal affect, normal mood Skin exam: Present: normal color Course Vital Signs 01/18/23 12:41 Temperature 98.0 F Pulse Rate 61 Respiratory 18 Rate Blood Pressure 157/59 O2 Sat by Pulse 97 Oximetry EKG Findings - EKG Results: EKG: interpreted by ERMD (Nonspecific ST-T. Inferior Q waves.), sinus rhythm, normal axis Medical Decision Making - Medical Decision Making I did discuss EKG with Dr. [place] who feels patient can be followed up as an outpatient and have outpatient echo. Patient symptoms were also discussed and he agrees no need for troponin. Repeat EKG shows sinus rhythm with rate of 65. MN 181. QRS 90. QT 394. QTC oral 5. Normal axis. Inferior Q waves. No acute ST change. Interpreted by myself. Was pt. sent in by a medical professional or institution (, PA, AIRPORT OPERATIONS DUTY MANAGER, urgent care, hospital, or fdc...) When possible be specific @ -No Did you speak to anyone other than the patient for history (EMS, parent, family, police, friend...)? What history was obtained from this source @ - is present and helps provide history. Patient is somewhat a poor historian. Did you review nursing and triage notes (agree or disagree)? Why? @ -I reviewed and agree with nursing and triage notes Were old charts reviewed (outside hosp., previous admission, EMS record, old EKG, old radiological studies, urgent care reports/EKG's, fdc records)? Report findings @ -No old charts were reviewed Differential Diagnosis (chest pain, altered mental status, abdominal pain women, abdominal pain men, vaginal bleeding, weakness, fever, dyspnea, syncope, headache, dizziness, GI bleed, back pain, seizure, CVA, palpatations, mental health, musculoskeletal)? @ -Differential Abdominal Pain Women: Appendicitis, Cholecystitis, diverticulosis, ischemic bowel, pancreatitis, hepatitis, UTI, gastroenteritis, AAA, incarcerated hernia, bowel obstruction, constipation, inflammatory bowel, hepatitis, peptic ulcer disease, splenic infarction, perforated viscus, vulvitis, ovarian torsion, PID, kidney stone, placenta abruption, this is not meant to be an all-inclusive list EKG interpreted by me (3pts min.). @ -As above X-rays interpreted by me (1pt min.). @ -Abdominal x-ray reveals no acute abnormality CT interpreted by me (1pt min.). @ -None done U/S interpreted by me (1pt. min.). @ - reviewed What testing was considered but not performed or refused? (CT, X-rays, U/S, labs)? Why? @ -None What meds were considered but not given or refused? Why? @ -None Did you discuss the management of the patient with other professionals (professionals i.e. , PA, AIRPORT OPERATIONS DUTY MANAGER, lab, RT, psych nurse, social science manager, machine setter, teacher, chief fundraising officer, correctional casework specialist)? Give summary @ -No Was smoking cessation discussed for >3mins.? @ -No Was critical care preformed (if so, how long)? @ -No Were there social determinants of health that impacted care today? How? (Homelessness, low income, unemployed, alcoholism, drug addiction, transportation, low edu. Level, literacy, decrease access to med. care, skilled nursing, rehab)? @ -No Was there de-escalation of care discussed even if they declined (Discuss DNR or withdrawal of care, Hospice)? DNR status @ -No What co-morbidities impacted this encounter? (DM, HTN, Smoking, COPD, CAD, Cancer, CVA, ARF, Chemo, Hep., AIDS, mental health diagnosis, sleep apnea, morbid obesity)? @ -None Was patient admitted / discharged? Hospital course, mention meds given and route, prescriptions, significant lab abnormalities, going to OR and other pertinent info. @ -Patient reevaluated. Patient and family are updated on results. Patient still symptom-free and comfortable with discharge home. Undiagnosed new problem with uncertain prognosis? @ -No Drug Therapy requiring intensive monitoring for toxicity (Heparin, Nitro, Insulin, Cardizem)? @ -No Were any procedures done? @ -No Diagnosis/[id number]? @ -Abdominal pain Acute, or Chronic, or Acute on Chronic? @ -Acute Uncomplicated (without systemic symptoms) or Complicated (systemic symptoms)? @ -default Side effects of treatment? @ -No Exacerbation, Progression, or Severe Exacerbation? @ -No Poses a threat to life or bodily function? How? (Chest pain, [place], MA, pneumonia, PE, COPD, DKA, ARF, appy, cholecystitis, CVA, Diverticulitis, Homicidal, Suicidal, threat to staff... and all critical care pts) @ -No - Lab Data Result diagrams: 01/18/23 12:48 01/18/23 12:48 Lab Results 01/18/23 01/18/23 01/18/23 Range/Units 12:48 12:48 14:31 WBC 5.5 (3.8-10.6) k/uL RBC 3.73 L (3.80-5.40) m/uL Hgb 10.0 L (11.4-16.0) gm/dL Hct 30.5 L (34.0-46.0) % MCV 81.7 (80.0-100.0) fL MCH 26.9 (25.0-35.0) pg MCHC 32.9 (31.0-37.0) g/dL RDW 17.1 H (11.5-15.5) % Plt Count 263 (150-450) k/uL MPV 7.6 Neutrophils % 68 % Lymphocytes % 23 % Monocytes % 5 % Eosinophils % 2 % Basophils % 1 % Neutrophils # 3.7 (1.3-7.7) k/uL Lymphocytes # 1.3 (1.0-4.8) k/uL Monocytes # 0.3 (0-1.0) k/uL Eosinophils # 0.1 (0-0.7) k/uL Basophils # 0.0 (0-0.2) k/uL Hypochromasia Moderate Anisocytosis Slight Sodium 141 (137-145) mmol/L Potassium 3.7 (3.5-5.1) mmol/L Chloride 109 H (98-107) mmol/L Carbon Dioxide 22 (22-30) mmol/L Anion Gap 10 mmol/L BUN 22 H (7-17) mg/dL Creatinine 0.79 (0.52-1.04) mg/dL Est GFR (CKD-EPI)AfAm 83 (>60 ml/min/1.73 sqM) Est GFR (CKD-EPI)NonAf 72 (>60 ml/min/1.73 sqM) Glucose 91 (74-99) mg/dL Calcium 8.7 (8.4-10.2) mg/dL Total Bilirubin 0.4 (0.2-1.3) mg/dL AST 120 H (14-36) U/L ALT 38 H (4-34) U/L Alkaline Phosphatase 91 (38-126) U/L Total Protein 6.3 (6.3-8.2) g/dL Albumin 3.7 (3.5-5.0) g/dL Urine Color Yellow Urine Appearance Clear (Clear) Urine pH 6.0 (5.0-8.0) Ur Specific [place] 1.025 (1.001-1.035) Urine Protein Trace H (Negative) Urine Glucose (UA) Negative (Negative) Urine Ketones Negative (Negative) Urine Blood Negative (Negative) Urine Nitrite Negative (Negative) Urine Bilirubin Negative (Negative) Urine Urobilinogen <2.0 (<2.0) mg/dL Ur Leukocyte Esterase Moderate (Negative) Urine RBC <1 (0-5) /hpf Urine WBC 6 H (0-5) /hpf Ur Squamous Epith Cells <1 (0-4) /hpf Urine Bacteria Rare H (None) /hpf Hyaline Casts 1 (0-2) /lpf Urine Mucus Few H (None) /hpf Disposition Clinical Impression: Abdominal pain Disposition: HOME SELF-CARE Condition: Stable Instructions (If sedation given, give patient instructions): Abdominal Pain (ED) Additional Instructions: Please do follow-up to primary care physician in the next day or 2 for recheck. Please also follow-up with cardiology and have an echo done. Return for i ncreased pain, vomiting or fever, worsening or changing symptoms or chest pain or any other concerns. Continue omeprazole. Is patient prescribed a controlled substance at d/c from ED?: No Referrals: Lyndon Glover MD [Primary Care Provider] - 1-2 days Tj Stout MD [Medical Doctor] - 1-2 days Time of Disposition: 15:57
--- NOTE | 2023-01-18 14:03 | XR ---
EXAMINATION TYPE: XR abdomen 2V DATE OF EXAM: 01/18/2023 COMPARISON: 09/29/2021 INDICATION: ABP, abdominal pain TECHNIQUE: Single view abdomen upright view. 2 supine views are obtained. FINDINGS: There is a normal bowel gas pattern. Psoas margins are normal. No organomegaly is present. No suspicious calcifications are evident. No suspicious air-fluid levels or differential air-fluid le vels are present. No free air is present. IMPRESSION: 1. Unremarkable Abdomen
[2023-01-18 14:05] LABS: Anisocytosis Slight; Basophils % (A) 1 %; Eosinophils # (A) 0.1 k/uL (0-0.7); Eosinophils % (A) 2 %; HCT 30.5 % (34.0-46.0); Hypochromasia Moderate; Lymphocytes # (A) 1.3 k/uL (1.0-4.8); Lymphocytes % (A) 23 %; MCH 26.9 pg (25.0-35.0); MCHC 32.9 g/dL (31.0-37.0); MCV 81.7 fL (80.0-100.0); Mean Platelet Volume 7.6; Monocytes # (A) 0.3 k/uL (0-1.0); Monocytes % (A) 5 %; Neutrophils # (A) 3.7 k/uL (1.3-7.7); Neutrophils % (A) 68 %; Platelet Count 263 k/uL (150-450); RBC 3.73 m/uL (3.80-5.40); RDW 17.1 % (11.5-15.5); WBC 5.5 k/uL (3.8-10.6)
[2023-01-18 14:23] LABS: ALT 38 U/L (4-34); AST 120 U/L (14-36); African American GFR (CKD) 83 (>60 ml/min/1.73 sqM); Albumin 3.7 g/dL (3.5-5.0); Alkaline Phosphatase 91 U/L (38-126); Anion Gap 10 mmol/L; Blood Urea Nitrogen 22 mg/dL (7-17); Calcium 8.7 mg/dL (8.4-10.2); Carbon Dioxide 22 mmol/L (22-30); Chloride 109 mmol/L (98-107); Glucose 91 mg/dL (74-99); Non-African American GFR(CKD) 72 (>60 ml/min/1.73 sqM); Potassium 3.7 mmol/L (3.5-5.1); Sodium 141 mmol/L (137-145); Total Bilirubin 0.4 mg/dL (0.2-1.3); Total Protein 6.3 g/dL (6.3-8.2)
--- NOTE | 2023-01-18 14:53 | US ---
EXAMINATION TYPE: US duplex aorta DATE OF EXAM: 01/18/2023 COMPARISON: CT CLINICAL INDICATION: Female, 77 years old with history of abp; ABD pain TECHNIQUE: Multiple sonographic images of the abdominal aorta are obtained. FINDINGS: EXAM MEASUREMENTS: Abdominal Aorta: Proximal: 1.8 x 1.8 cm Mid: 1.5 x 1.6 cm Distal: 1.4 x 1.5 cm Bifurcation: Right Illiac: 1.1 x 0.9 cm Left Illiac: 1.0 x 0.9 cm [employer] NOTES: Atherosclerotic bonilla, No evidence of AAA IMPRESSION: 1. No ultrasound changes to suggest abdominal aortic aneurysm.
[2023-01-18 15:30] LABS: Bacteria,Urine Rare /hpf; Hyaline Casts,Urine 1 /lpf (0-2); Mucus,Urine Few /hpf; RBC,Urine <1 /hpf (0-5); Squamous Epithelial Cell,Urine <1 /hpf (0-4); WBC,Urine 6 /hpf (0-5)
[2023-01-18 15:40] LABS: Appearance,Urine Clear (Clear); Color,Urine Yellow; Specific Gravity,Urine 1.025 (1.001-1.035)
[2023-01-18 15:41] LABS: Bilirubin,Urine Negative (Negative); Blood,Urine Negative (Negative); Glucose,Urine (UA) Negative (Negative); Ketones,Urine Negative (Negative); Leukocyte Esterase,Urine Moderate (Negative); Nitrite,Urine Negative (Negative); Protein,Urine Trace (Negative); Urobilinogen,Urine <2.0 mg/dL (<2.0)
[2023-01-18 16:15] VITALS: BP 145/82; PULSE 78
== END 2023-01-18 16:06 | disposition home or self-care (01) ==
LOC: EC 12:34
DX: R10.9 Unspecified abdominal pain (principal); K21.9 Gastro-esophageal reflux disease without esophagitis; I10 Essential (primary) hypertension; M19.90 Unspecified osteoarthritis, unspecified site; M81.0 Age-related osteoporosis without current pathological fracture; Z87.891 Personal history of nicotine dependence; Z88.5 Allergy status to narcotic agent; Z79.899 Other long term (current) drug therapy; Z90.49 Acquired absence of other specified parts of digestive tract
CPT/HCPCS: 36415; 74019; 80053; 81001; 85025; 93005; 93979; 99285

== ENCOUNTER 2023-04-23 11:17 | Emergency (ER) | payer MEDICARE ==
[2023-04-23 11:37] VITALS: BP 157/66; PULSE 65; RESP 18; TEMP 97.7
[2023-04-23] MEDS: SODIUM CHLORIDE 0.9% 1,000 ML IV SCH (12:50)
--- NOTE | 2023-04-23 13:02 | ED ---
General Adult HPI - General Chief complaint: Recheck/Abnormal Lab/Rx Stated complaint: Post CT Scan Time Seen by Provider: 04/23/23 11:48 Source: patient, family, RN notes reviewed, old records reviewed Mode of arrival: ambulatory - History of Present Illness Initial comments: 77-year-old female presenting from outpatient CT for evaluation of jaundice and abnormal CT. Patient had some abdominal pain and was seen in the emergency department 4 days prior. She had a transaminitis and a mild hyperbilirubinemia. She was seen by her primary care today with worsening jaundice and elevated bilirubin. CT was ordered and showed a distal obstructing mass with common bile duct dilatation. Patient denies fever. - Related Data Home Medications Medication Instructions Recorded Confirmed nadoloL [Corgard] 20 mg PO HS 10/24/14 01/07/23 Spironolact/Hydrochlorothiazid 0.5 tab PO Q2D 06/04/17 01/07/23 [Aldactazide 25-25 MG] L.acidoph,Paracasei, B.lactis 1 cap PO DAILY 03/22/19 01/07/23 [Probiotic] Omeprazole [PriLOSEC] 20 mg PO AC-BRKFST 04/11/20 01/07/23 Calcium Carbonate/Vitamin D3 1 cap PO DAILY 01/01/22 01/07/23 [Calcium 500Mg-Vit D3 15 mcg (600 unit)] Cholecalciferol [Vitamin D3 (25 25 mcg PO DAILY 01/07/23 01/07/23 Mcg = 1000 Iu)] Iron 18 mg PO DAILY 01/07/23 01/07/23 Previous Rx's Medication Instructions Recorded Estrogens, Conjugated Cream 1 gram VAGINAL DIRECTED #42.5 01/07/23 [Premarin Vaginal Cream] gram Allergies Allergy/AdvReac Type Severity Reaction Status Date / Time hydromorphone [From Dilaudid] AdvReac Nausea & Verified 04/23/23 11:30 Vomiting Review of Systems ROS Statement: Those systems with pertinent positive or pertinent negative responses have been documented in the HPI. ROS Other: All systems not noted in ROS Statement are negative. Past Medical History Past Medical History: GERD/Reflux, Hypertension, Osteoarthritis (OA) Additional Past Medical History / Comment(s): Osteoporosis(declined medication). hx hemorhoids. Iron deficiency anemia. 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 History of Any Multi-Drug Resistant Organisms: None Reported Past Surgical History: Cholecystectomy, Hysterectomy Additional Past Surgical History / Comment(s): Colonoscopy 2018(next after 10yr). Vaginal hysterectomy in 1976. Past Anesthesia/Blood Transfusion Reactions: No Reported Reaction Past Psychological History: No Psychological Hx Reported Smoking Status: Former smoker Past Alcohol Use History: Rare Past Drug Use History: None Reported - Past Family History Mother Family Medical History: Dementia, Hypertension General Exam General appearance: alert, in no apparent distress Head exam: Present: atraumatic, normocephalic Eye exam: Present: normal appearance, PERRL, scleral icterus Respiratory exam: Present: normal lung sounds bilaterally. Absent: respiratory distress, wheezes Cardiovascular Exam: Present: regular rate, normal rhythm GI/Abdominal exam: Present: soft. Absent: distended, tenderness, guarding Extremities exam: Present: normal inspection, normal capillary refill Neurological exam: Present: alert, oriented X3, CN II-XII intact. Absent: motor sensory deficit Psychiatric exam: Present: normal affect, normal mood Skin exam: Present: warm, dry, intact, other (Jaundice) Course Vital Signs 04/23/23 11:22 Temperature 97.7 F Pulse Rate 65 Respiratory 18 Rate Blood Pressure 157/66 O2 Sat by Pulse 94 L Oximetry - Reevaluation(s) Reevaluation #1: 04/23/23 12:56 Case discussed with Donna Freeman, ER physician Dr. Martinez. Will accept transfer for GI consultation. Medical Decision Making - Medical Decision Making Was pt. sent in by a medical professional or institution (, PA, ENGINEER BOOSTER AND EXHAUSTER, urgent care, hospital, or longterm...) When possible be specific @ -[Sent in by primary care Dr. Glover Did you speak to anyone other than the patient for history (EMS, parent, family, police, friend...)? What history was obtained from this source @ -No Did you review nursing and triage notes (agree or disagree)? Why? @ -I reviewed and agree with nursing and triage notes Were old charts reviewed (outside hosp., previous admission, EMS record, old EKG, old radiological studies, urgent care reports/EKG's, longterm records)? Report findings @ -No old charts were reviewed Differential Diagnosis (chest pain, altered mental status, abdominal pain women, abdominal pain men, vaginal bleeding, weakness, fever, dyspnea, syncope, headache, dizziness, GI bleed, back pain, seizure, CVA, palpatations, mental health, musculoskeletal)? @ -[Differential Abdominal Pain Women: Appendicitis, Cholecystitis, diverticulosis, ischemic bowel, pancreatitis, hepatitis, UTI, gastroenteritis, AAA, incarcerated hernia, bowel obstruction, constipation, inflammatory bowel, hepatitis, peptic ulcer disease, splenic infarction, perforated viscus, vulvitis, ovarian torsion, PID, kidney stone, placenta abruption, this is not meant to be an all-inclusive list EKG interpreted by me (3pts min.). @ -As above X-rays interpreted by me (1pt min.). @ -None done CT interpreted by me (1pt min.). @ -CT shows a 2.1 cm mass distal common bile duct with rotation of the common bile duct, concerning for malignancy. U/S interpreted by me (1pt. min.). @ -None done What testing was considered but not performed or refused? (CT, X-rays, U/S, labs)? Why? @ -None What meds were considered but not given or refused? Why? @ -None Did you discuss the management of the patient with other professionals (professionals i.e. , PA, ENGINEER BOOSTER [employer] EXHAUSTER, lab, RT, psych nurse, social services designee, stucco laborer, teacher, business development officer, case mgr)? Give summary @ -No Was smoking cessation discussed for >3mins.? @ -No Was critical care preformed (if so, how long)? @ -No Were there social determinants of health that impacted care today? How? (Homelessness, low income, unemployed, alcoholism, drug addiction, transportation, low edu. Level, literacy, decrease access to med. care, senior care, rehab)? @ -No Was there de-escalation of care discussed even if they declined (Discuss DNR or withdrawal of care, Hospice)? DNR status @ -No What co-morbidities impacted this encounter? (DM, HTN, Smoking, COPD, CAD, Cancer, CVA, ARF, Chemo, Hep., AIDS, mental health diagnosis, sleep apnea, morbid obesity)? @ -[Dementia, previous cholecystectomy Was patient admitted / discharged? Hospital course, mention meds given and route, prescriptions, significant lab abnormalities, going to OR and other p ertinent info. @ -77-year-old female with jaundice, hyperbilirubinemia, concern for obstructing biliary mass. This institution does not currently have GI and it is recommended that the patient receive a more urgent evaluation. Case discussed with Donna Freeman who will accept transfer. Patient has a bilirubin of 6 and an elevated AST, ALT, alkaline phosphatase. No leukocytosis, stable hemoglobin. Patient is afebrile. Undiagnosed new problem with uncertain prognosis? @ -No Drug Therapy requiring intensive monitoring for toxicity (Heparin, Nitro, Insulin, Cardizem)? @ -No Were any procedures done? @ -No Diagnosis/symptom? @Painless jaundice, obstructing biliary mass Acute, or Chronic, or Acute on Chronic? @ -Acute Uncomplicated (without systemic symptoms) or Complicated (systemic symptoms)? @ -Default Side effects of treatment? @ -No Exacerbation, Progression, or Severe Exacerbation? @ -No Poses a threat to life or bodily function? How? (Chest pain, [place], [place], pneumonia, PE, COPD, DKA, ARF, appy, cholecystitis, CVA, Diverticulitis, Homicidal, Suicidal, threat to staff... and all critical care pts) @ -Yes, biliary obstruction Disposition Clinical Impression: Hyperbilirubinemia, Biliary obstruction Disposition: OTHER INSTITUTION NOT DEFINED Condition: Serious Is patient prescribed a controlled substance at d/c from ED?: No Referrals: Lyndon Glover MD [Primary Care Provider] - 1-2 days Time of Disposition: 13:02 - Out of Hospital Transfer - Req. Specs Out of Hospital Transfer - Requested Specifics: Other Emergency Center (Transfer to [facility])
[2023-04-23] MEDS: LORazepam 2 MG/ML INJ IV STA (13:10)
== END 2023-04-23 13:59 | disposition other institution (70) ==
LOC: EC 11:17
DX: K83.1 Obstruction of bile duct (principal); E80.6 Other disorders of bilirubin metabolism; I10 Essential (primary) hypertension; K21.9 Gastro-esophageal reflux disease without esophagitis; Z79.899 Other long term (current) drug therapy; Z87.891 Personal history of nicotine dependence; Z88.5 Allergy status to narcotic agent; Z90.49 Acquired absence of other specified parts of digestive tract; Z90.710 Acquired absence of both cervix and uterus
CPT/HCPCS: 99285; 96374; 96361; J2060

== ENCOUNTER → 2023-04-23 | Outpatient (CLI) | payer MEDICARE ==
[2023-04-23 10:28] LABS: Basophils # (A) 0.1 k/uL (0-0.2); Basophils % (A) 1 %; Eosinophils # (A) 0.1 k/uL (0-0.7); Eosinophils % (A) 2 %; HCT 34.7 % (34.0-46.0); HGB 10.7 gm/dL (11.4-16.0); Hypochromasia Marked; Lymphocytes # (A) 1.3 k/uL (1.0-4.8); Lymphocytes % (A) 16 %; MCH 26.5 pg (25.0-35.0); MCV 85.7 fL (80.0-100.0); Mean Platelet Volume 8.1; Monocytes # (A) 0.7 k/uL (0-1.0); Monocytes % (A) 8 %; Neutrophils # (A) 5.6 k/uL (1.3-7.7); Neutrophils % (A) 69 %; Platelet Count 473 k/uL (150-450); RBC 4.05 m/uL (3.80-5.40); RDW 15.7 % (11.5-15.5)
[2023-04-23 10:38] LABS: ALT 391 U/L (4-34); AST 386 U/L (14-36); African American GFR (CKD) 61 (>60 ml/min/1.73 sqM); Albumin 4.2 g/dL (3.5-5.0); Albumin/Globulin Ratio 1.4; Anion Gap 12 mmol/L; Blood Urea Nitrogen 22 mg/dL (7-17); Calcium 9.5 mg/dL (8.4-10.2); Carbon Dioxide 24 mmol/L (22-30); Chloride 100 mmol/L (98-107); Globulin 3.1 g/dL; Glucose 100 mg/dL (74-99); Non-African American GFR(CKD) 53 (>60 ml/min/1.73 sqM); Potassium 4.3 mmol/L (3.5-5.1); Sodium 136 mmol/L (137-145); Total Protein 7.3 g/dL (6.3-8.2)
--- NOTE | 2023-04-23 11:06 | CT ---
EXAMINATION TYPE: CT abdomen w con DATE OF EXAM: 04/23/2023 COMPARISON: None available. HISTORY: ELEVATION OF LEVELS OF LIVER TRANSAMINASE CT DLP: 309 mGycm Automated exposure control for dose reduction was used. TECHNIQUE: Helical acquisition of images was performed from the lung bases through the top of iliac crest to include entire abdomen. CONTRAST: Performed with Oral Contrast and with IV Contrast, patient injected with 100 mL of Isovue 300. FINDINGS: LUNG BASES: There is a calcified granuloma in the right lower lobe. Visualized lung bases otherwise a ppear clear. There are no pleural or pericardial effusions. LIVER/GB: There is moderate intrahepatic biliary ductal dilation and significant tortuosity of the co mmon bile duct with dilation of the common bile duct measuring up to approximately 1.3 cm in diameter . There appears to be a soft tissue mass in the region of the ampulla measuring up to approximately 2 .1 cm in diameter. The gallbladder surgically absent. PANCREAS: No significant abnormality is seen. SPLEEN: No significant abnormality is seen. ADRENALS: No significant abnormality is seen. KIDNEYS: There is a subcentimeter hypodensity in the left kidney that is too small for characterize. No suspicious renal lesions are seen. BOWEL: No significant abnormality is seen. LYMPH NODES: No significant abnormality is seen. OSSEOUS STRUCTURES: No significant abnormality is seen. FREE AIR: No free air is visualized. OTHER: There is mild vascular calcification moderate vascular calcification throughout the abdominal aorta without evidence of aneurysmal dilation or dissection. IMPRESSION: 1. THERE APPEARS TO BE A MASS AT THE AMPULLA WITH INTRA AND EXTRAHEPATIC BILIARY DUCTAL DILATION. THI S WOULD RAISE THE POSSIBILITY OF MALIGNANCY AND A GI CONSULT IS RECOMMENDED FOR FURTHER EVALUATION. 2. NO ADDITIONAL ACUTE FINDINGS IDENTIFIED.
[2023-04-23 11:27] LABS: Alkaline Phosphatase 851 U/L (38-126)
[2023-04-23 18:28] LABS: GGT 950 U/L (0-38)
[2023-04-23 18:42] LABS: Hepatitis A Antibody IgM Nonreactive; Hepatitis B Core IgM Nonreactive; Hepatitis B Surface Antigen Nonreactive; Hepatitis C IgG Antibody Nonreactive
== END | disposition home or self-care (01) ==
LOC: RADCTMAIN 09:34
PROVIDERS: ATTEND Family Medicine
DX: K83.8 Other specified diseases of biliary tract (principal); R74.01 Elevation of levels of liver transaminase levels; R41.82 Altered mental status, unspecified; Z90.49 Acquired absence of other specified parts of digestive tract
CPT/HCPCS: 80053; 80074; 84443; 82607; 82977; 85025; 82306; 74160; 36415; Q9967